=== PATIENT | female | born 1935 | race Two or more races ===

== ENCOUNTER 2017-08-18 16:03 | Inpatient (IN) | payer OTHER, MEDICARE ==
[~2017-08-18] VITALS: Ht 152.4 cm; Wt 66.2 kg
--- NOTE | 2017-08-18 16:05 | NUR ---
PT BROUGHT IN BY AKTE RA C/C OF ALOC. PT HOT TO TOUCH. LWK X 2 DAYS. ALL OTHER VSS. NEG OTHER DISTRESS NOTED. AWAITING MD BERGER.
[2017-08-18] MEDS ORDERED: ACETAMINOPHEN 650 MG/SUPP.RECT RC ONE ×2 (16:17→16:30)
[2017-08-18] MEDS ORDERED: PIPERACILLIN /TAZOBACTAM 3.375 G VIAL IV ONE (16:17)
--- NOTE | 2017-08-18 16:25 | NUR ---
PT BROUGHT TO CT
[2017-08-18] MEDS ORDERED: IV NS 0.9% 1,000 ML BAG IV ONE (16:30)
[2017-08-18] MEDS ORDERED: PIPERACILLIN /TAZOBACTAM 3.375 G in IV D5W 50 ML IV ONE (16:30)
--- NOTE | 2017-08-18 16:35 | NUR ---
PT RETURNED FROM CT
[2017-08-18 16:40] LABS: ALANINE AMINOTRANSFERASE 22 U/L (12-78); ALBUMIN 2.1 g/dL (3.4-5.0); ALKALINE PHOSPHATASE 125 U/L (46-116); ASPARTATE AMINOTRANSFERASE 15 U/L (15-37); BILIRUBIN,DIRECT 0.5 mg/dL (0.0-0.2); CALCIUM, SERUM 8.9 mg/dL (8.5-10.1); CARBON DIOXIDE 23 mmol/L (21-32); CHLORIDE 102 mmol/L (98-107); CREATININE 1.5 mg/dL (0.6-1.3); GLUCOSE 129 mg/dL (74-106); POTASSIUM 3.2 mmol/L (3.5-5.1); SODIUM SERUM 135 mmol/L (136-145); TOTAL PROTEIN, SERUM 6.4 g/dL (6.4-8.2); UREA NITROGEN, BLOOD 36 mg/dL (7-18)
[2017-08-18 16:42] LABS: TROPONIN I 0.218 ng/mL (0.00-0.056)
[2017-08-18 17:02] LABS: INR 8.27 (0.85-1.15)
[2017-08-18 17:10] LABS: APPEARANCE,URINE Clear (CLEAR); BILIRUBIN,URINE Negative (NEGATIVE); BLOOD, URINE Small Ery/uL (NEGATIVE); COLOR,URINE Yellow (YELLOW); KETONES,URINE Negative (NEGATIVE); LEUKOCYTE ESTERASE ,URINE Negative (NEGATIVE); NITRITE, URINE Negative (NEGATIVE); PH,URINE 5.5 (5.0-8.0); PROTEIN,URINE 30 mg/dl (NEGATIVE); UGLUCOSE Negative (NEGATIVE); UROBILINOGEN,URINE 0.2 EU/dL (0.2)
[2017-08-18] MEDS ORDERED: PRED2.5T PO (17:16)
[2017-08-18] MEDS ORDERED: ISOS20TA8 PO (17:16)
[2017-08-18] MEDS ORDERED: INSU100V7 SQ (17:16)
[2017-08-18] MEDS ORDERED: ASPI-1169 PO (17:16)
[2017-08-18] MEDS ORDERED: SERT50TA PO (17:16)
[2017-08-18] MEDS ORDERED: CARV6.252 PO (17:16)
[2017-08-18] MEDS ORDERED: ACET325T53 PO (17:16)
[2017-08-18] MEDS ORDERED: LOPE1LIQ56 PO (17:16)
[2017-08-18] MEDS ORDERED: HYDR-4077 PO (17:16)
[2017-08-18] MEDS ORDERED: BUME0.5T3 PO (17:16)
[2017-08-18] MEDS ORDERED: BLOO-668 IN (17:16)
[2017-08-18] MEDS ORDERED: WARF6TAB23 PO (17:16)
[2017-08-18] MEDS ORDERED: INSU100V11 SQ (17:16)
[2017-08-18] MEDS ORDERED: LOSA25TA13 PO (17:16)
[2017-08-18] MEDS ORDERED: ASPIRIN 81 MG TAB.CHEW PO ONE (17:30)
[2017-08-18 17:39] LABS: BASOPHILS % (AUTO) 0.1 % (0.0-2.0); EOSINOPHILS % (AUTO) 0.1 % (0.0-6.0); HEMATOCRIT 39 % (33-45); HEMOGLOBIN 12.9 g/dL (11.5-14.8); LYMPHOCYTES # (AUTO) 1.6 /CMM (0.8-4.8); LYMPHOCYTES % (AUTO) 4.4 % (20.0-44.0); MEAN CORPUSCULAR HEMOGLOBIN 27 PG (26.0-33.0); MEAN CORPUSCULAR HGB CONC 33 g/dl (31.0-36.0); MEAN CORPUSCULAR VOLUME 81 fL (82-100); MONOCYTES # (AUTO) 2.6 /CMM (0.1-1.30); MONOCYTES % (AUTO) 7.1 % (2.0-12.0); NEUTROPHILS # (AUTO) 32.5 /CMM (1.8-8.9); NEUTROPHILS % (AUTO) 88.3 % (43.0-81.0); PLATELET COUNT (AUTO) 338 /CMM (150-450); RDW COEFFICIENT OF VARIATION 16.7 (11.5-15.0)
[2017-08-18 17:43] LABS: WHITE BLOOD COUNT (AUTO) 36.8 K/uL (4.3-11.0)
--- NOTE | 2017-08-18 18:00 | NUR ---
JELANI PAGED, TIESHA FRANCISCO SPECIAL AGENT DIETITIAN
--- NOTE | 2017-08-18 18:41 | NUR ---
CHU 103 FOR SEPSIS, COLITIS, NSTEMI, TIESHA FRANCISCO ADMITTING
--- NOTE | 2017-08-18 19:30 | NUR ---
CHU/ADMISSION RN NOTES: RECEIVED PT. IN [facility] FROM [facility].R. W/ SON AND DAUGHTER IN [place] [phone]. W/ O2 @ 4LPM VIA N/C SAT. 94%. ALERT TO NAME ONLY. SPEAKS TURKISH ONLY. NO FACIAL GRIMACES OR MOANING NOTED. NO S/S OF RESPIRATORY DISTRESS NOTED. ON TELE MONITOR W/ SR W/ BBB. HAS F/C INPLACE DRAINING VIA GRAVITIY. K 3.2 GAVE 3 BAGS OF K PER ORDER. INCONTINENT OF B/B. NOTED TO HAVE 2 EPISODES OF DIARRHEA. SEND STOOL FOR C-DIFF. HAS A RIGHT HAND G 20 PATENT AND INTACT W/ NO S/S OF INFECTION/INFILTRATION NOTED. CALL LIGHT W/ REACH. WILL CONTINUE TO MONITOR.
[2017-08-18 20:00] VITALS: BP 118/59
[2017-08-18] MEDS ORDERED: ACETAMINOPHEN 325 MG TABLET PO PRN (20:00)
[2017-08-18] MEDS ORDERED: KETOROLAC TROMETHAMINE INJ 30 MG/ML VIAL IM PRN ×2 (20:00)
[2017-08-18] MEDS ORDERED: ONDANSETRON HCL/PF 4 MG/2 ML VIAL IVP PRN (20:00)
[2017-08-18 20:14] LABS: BAND % (MANUAL) 7 % (0.0-5.0); LYMPHOCYTES % (MANUAL) 2 % (16-48); NEUTROPHILS % (MANUAL) 86 (42-76)
[2017-08-18 20:23] LABS: BACTERIA,URINE 4+ /HPF (None Seen); SQUAMOUS EPITHELIAL CELL,UR Rare /HPF (None Seen)
[2017-08-18] MEDS: POTASSIUM CL. PREMIX PERIPHER. 50 ML IV SCH ×3 (20:25→22:39)
[2017-08-18] MEDS ORDERED: DEXTROSE 50%-WATER 50 ML DISP.SYRIN IV PRN (20:30)
[2017-08-18] MEDS: METRONIDAZOLE 500MG/ NS 100ML 100 ML IV SCH (21:00)
[2017-08-18 22:00] LABS: OCCULT BLOOD STOOL POSITIVE (NEGATIVE)
[2017-08-18 22:28] LABS: BASOPHILS # (AUTO) 0.1 /CMM (0.0-0.2); BASOPHILS % (AUTO) 0.2 % (0.0-2.0); EOSINOPHILS % (AUTO) 0.1 % (0.0-6.0); HEMATOCRIT 39 % (33-45); HEMOGLOBIN 12.7 g/dL (11.5-14.8); LYMPHOCYTES # (AUTO) 1.5 /CMM (0.8-4.8); LYMPHOCYTES % (AUTO) 4.2 % (20.0-44.0); MEAN CORPUSCULAR HEMOGLOBIN 26 PG (26.0-33.0); MEAN CORPUSCULAR HGB CONC 33 g/dl (31.0-36.0); MEAN CORPUSCULAR VOLUME 81 fL (82-100); MONOCYTES # (AUTO) 3.1 /CMM (0.1-1.30); MONOCYTES % (AUTO) 8.3 % (2.0-12.0); NEUTROPHILS % (AUTO) 87.2 % (43.0-81.0); PLATELET COUNT (AUTO) 294 /CMM (150-450); RDW COEFFICIENT OF VARIATION 16.4 (11.5-15.0); RED BLOOD CELL COUNT(AUTO) 4.79 MIL/uL (4.0-5.2)
[2017-08-18 22:39] LABS: CALCIUM, SERUM 8.2 mg/dL (8.5-10.1); CARBON DIOXIDE 19 mmol/L (21-32); CHLORIDE 105 mmol/L (98-107); CREATININE 1.6 mg/dL (0.6-1.3); GLUCOSE 146 mg/dL (74-106); POTASSIUM 3.7 mmol/L (3.5-5.1); SODIUM SERUM 138 mmol/L (136-145); UREA NITROGEN, BLOOD 34 mg/dL (7-18)
[2017-08-18 22:49] LABS: TROPONIN I 0.218 ng/mL (0.00-0.056)
[2017-08-18 22:50] LABS: WHITE BLOOD COUNT (AUTO) 36.7 K/uL (4.3-11.0)
[2017-08-18 23:03] LABS: BAND % (MANUAL) 13 % (0.0-5.0); LYMPHOCYTES % (MANUAL) 7 % (16-48); NEUTROPHILS % (MANUAL) 74 (42-76)
[2017-08-18] MEDS ORDERED: METRONIDAZOLE 500MG/ NS 100ML 100 ML IV ONE (23:03)
[2017-08-18 23:04] LABS: MONOCYTES % (MANUAL) 6 % (0-11.0)
[2017-08-18 23:06] VITALS: BP 118/59
[2017-08-19] VITALS (11 sets, daily range): BP systolic 82–116; BP diastolic 43–56
[2017-08-19] MEDS ORDERED: VANCOMYCIN IV ONE ×2
[2017-08-19] MEDS ORDERED: D5W IV ONE ×2
[2017-08-19] MEDS: BLOOD SUGAR DIAGNOSTIC 1 EACH STRIP IN SCH ×5 (00:31→23:26)
[2017-08-19] MEDS: INSULIN REGULAR, HUMAN 100 UNIT/ML 3 ML VIAL SQ PRN ×5 (00:34→23:39)
[2017-08-19] MEDS ORDERED: PIPERACILLIN /TAZOBACTAM 2.25 G VIAL IV ONE ×2 (00:41→06:26)
[2017-08-19] MEDS: PIPERACILLIN /TAZOBACTAM 2.25 G in IV D5W 50 ML IV SCH ×5 (00:57→23:51)
[2017-08-19] MEDS: ATORVASTATIN 40 MG TABLET PO SCH ×2 (01:00→21:43)
[2017-08-19] MEDS ORDERED: VANCOMYCIN 1 GM VIAL ONE (01:04)
[2017-08-19] MEDS ORDERED: VANCOMYCIN 500 MG VIAL ONE (01:04)
[2017-08-19] MEDS ORDERED: VANCOMYCIN 1.25 GM in IV NS 0.9% 500 ML IV ONE (02:00)
[2017-08-19] MEDS: METRONIDAZOLE 500MG/ NS 100ML 100 ML IV SCH ×3 (05:00→21:43)
[2017-08-19 06:39] LABS: MAGNESIUM 1.9 mg/dL (1.8-2.4); PHOSPHORUS 3.2 mg/dL (2.5-4.9)
--- NOTE | 2017-08-19 07:25 | NUR ---
CHU/RN NOTES: NO ACUTE CHANGES NOTED DURING THIS SHIFT. REPORT GIVEN TO AM NURSE FOR NYLA.
--- NOTE | 2017-08-19 07:56 | NUR ---
CHU RN NOTE PATIENT IN BED , ALL NEEDS ATTENDED ,ON 4L NC OF O2 , NO SOB NOTED AT THIS TIME , BED IN LOWEST AND LOCKED POSITION , CALL LIGHT WITHIN REACH, ON TELE MONITOR SR ,ON NPO STATUS AT THIS TIME RT HAND HL INTACT WITH SEGURA CATH TO GRAVITY WITH YELLOW COLOR URINE PATIENT SLEEPING BUT AROUSAL BY HER NAME WILL CONT TO MONITOR CLOSELY
[2017-08-19 08:01] LABS: INR > 10.00 (0.87-1.13)
[2017-08-19 08:26] LABS: THYROID STIMULATING HORMONE 0.514 uIU/mL (0.358-3.74)
[2017-08-19] MEDS: predniSONE 5 MG TABLET PO SCH (08:41)
[2017-08-19] MEDS: PANTOPRAZOLE 40 MG VIAL IV SCH (08:54)
[2017-08-19] MEDS ORDERED: Z GUARD REMEDY 2 OZ OINT TP SCH (09:00)
[2017-08-19] MEDS ORDERED: Medication Not On Formulary EA (Prednisone 2.5 MG) PO SCH (09:00)
--- NOTE | 2017-08-19 10:00 | NUR ---
CHU RN NOTE PATIENT REMOVE INCIDENTALLY HL , NEW ONE LANIE 24 WITH GOOD BLOOD RETURN ON RT FA INSERTED , ST AT BEDSIDE PASS ED WILL PLACED ON PUREE DIET
--- NOTE | 2017-08-19 10:43 | NUR ---
CHU RN NOTE 2D ECHO DONE ORDERED MADE BM KEEP CLEAN DRY , [facility] PATIENT HAS POSITIVE C DIF , ON ISOLATION PER HOSPITAL PROTOCOL
--- NOTE | 2017-08-19 11:30 | NUR ---
CHU RN NOTE SPOKE WITH TIESHA NOTIFIED THAT INR 10.00 ALSO AWARE THAT PATIENT ON TORADOL PRN NO ANTICOAGULANT HAVE AT THIS TIME OK TO D\C TORADOL ORDER CADDIED OUT Addendum: 08/19/17 at 1313 by BERNA GORDON RN PT AT BEDSIDE ABLE TO SIT AT EDGE OF BED WITH MOD ASSISTANCE, FAMILY AT BEDSIDE
[2017-08-19] MEDS ORDERED: FEE PK DOSING 1 MIN EA MC ONE (11:33)
--- NOTE | 2017-08-19 14:05 | NUR ---
CHU RN NOTE SPOKE WITH DR DAVIS NOTIFIED THAT BUN 34 AND CREATINE 1.6 ALSO SINCE MORNING ONLY 100 ML OF URINE , STATED THAT WILL CHECK PATIENT
[2017-08-19] MEDS: LACTOBACILLUS RHAMNOSUS GG 1 EACH CAP.SPRINK PO SCH (17:08)
[2017-08-19] MEDS: VANCOMYCIN HCL 125 MG/2.5 ML ORAL.SUSP PO SCH ×2 (17:34→23:26)
[2017-08-19] MEDS ORDERED: Medication Not On Formulary EA (Insulin Glargine,Hum.rec.anlog (Lantus) 20 UNIT) SQ SCH (18:00)
[2017-08-19] MEDS ORDERED: INSULIN GLARGINE, 100 UNIT/ML CARTRIDGE SQ SCH (18:00)
--- NOTE | 2017-08-19 18:55 | NUR ---
CHU RN NOTE SEEN BY DR AVILA CHECK WRITER SALESPERSON NOTIFIED THAT INR >10 NO NEW ORDER GIVEN AT THIS TIME, WILL CONT TO MONITOR CLOSELY
--- NOTE | 2017-08-19 20:00 | NUR ---
RN TEL NOTE PATIENT IN BED , ALL NEEDS ATTENDED ,ON 4L NC OF O2 , NO SOB NOTED AT THIS TIME , SEEN BY DR AVILA STATUS TEL , DAUGHTER BY BED SIDE UPDATE GIVEN REGARDING PT PLAN OF CARE. BED IN LOWEST AND LOCKED POSITION , CALL LIGHT WITHIN REACH, ON TELE MONITOR SR ,ON PUREE WITH PLAN TO UPGRADE TO CCHO DIET . RT HAND HL INTACT WITH SEGURA CATH TO GRAVITY WITH YELLOW COLOR URINE PATIENT SLEEPING BUT AROUSAL BY HER NAME WILL CONT TO MONITOR CLOSELY
[2017-08-19] MEDS: ACETAMINOPHEN 325 MG TABLET PO PRN (21:43)
[2017-08-19] MEDS ORDERED: VANCOMYCIN 1 GM in IV D5W 250 ML IV SCH (22:00)
[2017-08-20] VITALS: BP 113/45
[2017-08-20 04:00] VITALS: BP 108/44
[2017-08-20] MEDS: METRONIDAZOLE 500MG/ NS 100ML 100 ML IV SCH ×3 (04:22→22:20)
[2017-08-20] MEDS: BLOOD SUGAR DIAGNOSTIC 1 EACH STRIP IN SCH ×4 (05:37→22:59)
[2017-08-20] MEDS: PIPERACILLIN /TAZOBACTAM 2.25 G in IV D5W 50 ML IV SCH (05:37)
[2017-08-20] MEDS: VANCOMYCIN HCL 125 MG/2.5 ML ORAL.SUSP PO SCH ×4 (05:37→23:20)
[2017-08-20] MEDS: INSULIN REGULAR, HUMAN 100 UNIT/ML 3 ML VIAL SQ PRN ×3 (05:56→17:35)
[2017-08-20 06:36] LABS: BASOPHILS # (AUTO) 0.1 /CMM (0.0-0.2); BASOPHILS % (AUTO) 0.1 % (0.0-2.0); EOSINOPHILS % (AUTO) 0.2 % (0.0-6.0); HEMATOCRIT 39 % (33-45); HEMOGLOBIN 12.7 g/dL (11.5-14.8); LYMPHOCYTES # (AUTO) 1.7 /CMM (0.8-4.8); LYMPHOCYTES % (AUTO) 2.9 % (20.0-44.0); MEAN CORPUSCULAR HEMOGLOBIN 27 PG (26.0-33.0); MEAN CORPUSCULAR HGB CONC 33 g/dl (31.0-36.0); MEAN CORPUSCULAR VOLUME 81 fL (82-100); MONOCYTES # (AUTO) 3.3 /CMM (0.1-1.30); MONOCYTES % (AUTO) 5.6 % (2.0-12.0); NEUTROPHILS % (AUTO) 91.2 % (43.0-81.0); PLATELET COUNT (AUTO) 323 /CMM (150-450); RDW COEFFICIENT OF VARIATION 16.5 (11.5-15.0); RED BLOOD CELL COUNT(AUTO) 4.74 MIL/uL (4.0-5.2)
--- NOTE | 2017-08-20 06:47 | NUR ---
RN TEL CLOSING NOTE PATIENT IN BED , ALL NEEDS ATTENDED ,ON 4L NC OF O2 , NO SOB NOTED AT THIS TIME , BP TRENDING IN LOW 100'S. BED IN LOWEST AND LOCKED POSITION , CALL LIGHT WITHIN REACH, ON TELE MONITOR SR ,ON PUREE WITH PLAN TO UPGRADE TO CCHO DIET . RT HAND HL INTACT WITH SEGURA CATH TO GRAVITY WITH YELLOW COLOR URINE PATIENT SLEEPING BUT AROUSAL BY HER NAME WILL CONT TO MONITOR CLOSELY
[2017-08-20 06:54] LABS: CALCIUM, SERUM 7.9 mg/dL (8.5-10.1); CARBON DIOXIDE 18 mmol/L (21-32); CHLORIDE 104 mmol/L (98-107); GLUCOSE 200 mg/dL (74-106); MAGNESIUM 2.1 mg/dL (1.8-2.4); PHOSPHORUS 3.2 mg/dL (2.5-4.9); POTASSIUM 3.5 mmol/L (3.5-5.1); SODIUM SERUM 134 mmol/L (136-145); UREA NITROGEN, BLOOD 50 mg/dL (7-18)
--- NOTE | 2017-08-20 07:00 | NUR ---
MANAGER TRADE OPENING NOTE GOT REPORT FROM PM NURSE.INFORMED THAT PATIENT WBC TRENDING HIGH.WITH CRITICAL RESULT.WILL FOLLOW UP WITH PCP.PATIENT IN BED AXOX1 ICELANDIC SPEAKING.ON O2 4L NC SATURATING 94%. RT HAND IV #20 INTACT, SEGURA CATH DRAINING TEA COLOR URINE .ON ISOLATION FOR C-DIFF.ALLERGIC TO MORPHINE .FULL CODE. ON TELE MONITOR SR 95 ,ON PUREE DIET . BED IN LOWEST AND LOCKED POSITION , CALL LIGHT WITHIN REACH.WILL CONTINUE TO MONITOR.
[2017-08-20 07:10] LABS: WHITE BLOOD COUNT (AUTO) 58.1 K/uL (4.3-11.0)
[2017-08-20 08:00] VITALS: BP 94/46
[2017-08-20 08:59] LABS: LYMPHOCYTES % (MANUAL) 5 % (16-48); MONOCYTES % (MANUAL) 8 % (0-11.0); NEUTROPHILS % (MANUAL) 87 (42-76)
--- NOTE | 2017-08-20 09:00 | NUR ---
RN NOTES SEEN BY AWARE ABOUT CRITICAL WC AND ALL ABNORMAL LABS.ORDERED X RAY AND IVF .SEEN BY WOUND CARE NURSE.GOT NEW ORDERS.
[2017-08-20] MEDS: LACTOBACILLUS RHAMNOSUS GG 1 EACH CAP.SPRINK PO SCH ×2 (09:20→17:27)
[2017-08-20] MEDS: IV NS 0.9% 1,000 ML IV SCH ×2 (09:21→20:52)
[2017-08-20] MEDS: PANTOPRAZOLE 40 MG VIAL IV SCH (09:21)
[2017-08-20] MEDS: predniSONE 5 MG TABLET PO SCH (09:21)
--- NOTE | 2017-08-20 09:33 | NUR ---
WOUND CARE CONSULT: PT PRESENTS WITH INCONTINENCE OF LOOSE STOOL, LEFT THIGH DRY ABRASION, SACRAL SCARRING AND REDNESS TO BILATERAL BUTTOCKS, BLANCHABLE. ALL SKIN PROTECTION RECOMMENDATIONS DISCUSSED WITH NURSING STAFF. ALESHIA ISOFLEX LOW AIRLOSS BED TO BE PLACED. WILL SEE PRN. JAY IN AGREEMENT WITH PLAN OF CARE. Addendum: 08/20/17 at 0934 by JACKIE ANDRES WNDNU Amended: Links added.
[2017-08-20 09:54] LABS: TROPONIN I 0.214 ng/mL (0.00-0.056)
[2017-08-20 10:37] LABS: INR > 10.00 (0.87-1.13)
--- NOTE | 2017-08-20 10:45 | NUR ---
CUFF SETTER LOCKSTITCH NOTES GOT CALL FROM LAB FOR CRITICAL PT INR RESULT.HOUSEHOLD APPLIANCE REPAIRER TIESHA MADE AWARE.NOTIFIED ABOUT ALL ABNORMAL LABS AND SMALL BLOOD CLOTS NOTED IN BM.SHE SAID SHE WILL FOLLOW UP WITH FOR VIT K.
[2017-08-20] MEDS ORDERED: DEXTROSE 50%-WATER 50 ML DISP.SYRIN IV PRN (11:00)
[2017-08-20 12:00] VITALS: BP 90/43
[2017-08-20] MEDS ORDERED: PHYTONADIONE INJ 10 MG/1 ML AMPUL SQ ONE (12:00)
[2017-08-20 12:40] LABS: ABG BASE EXCESS -8.4 mmol/L; ABG OXYGEN SATURATION 97.2 % (92.0-98.5); ABG PCO2 29.8 mmHg (35.0-45.0); ABG PH 7.346 (7.350-7.450); ABG PO2 101.4 mmHg (75.0-100.0); AaDO2 120.7 mmHg; COHb 0.1 % (0.5-1.5); MetHb 0.6 % (0.0-1.5); O2Hb 96.5 % (94.0-97.0); SITE, ABG Right Brachial; VENT MODE, BG NASAL CANNULA
[2017-08-20] MEDS ORDERED: PIPERACILLIN /TAZOBACTAM 2.25 G in IV D5W 50 ML IV SCH (13:00)
--- NOTE | 2017-08-20 15:00 | NUR ---
PROJECT PORTFOLIO ANALYST NOTES SEEN BY SHALONDA MOTLEY WITH NEW ORDERS.ALL ABNORMAL LABS REPORTED.WILL CONTINUE TO MONITOR.
[2017-08-20 15:37] LABS: INR > 10.00 (0.87-1.13)
[2017-08-20 16:00] VITALS: BP 102/57
--- NOTE | 2017-08-20 16:00 | NUR ---
RN NOTES PT REFUSED PT EVAL
[2017-08-20] MEDS: INSULIN GLARGINE, 100 UNIT/ML CARTRIDGE SQ SCH (17:35)
--- NOTE | 2017-08-20 19:36 | NUR ---
MENDER KNIT GOODS SHIFT END NOTE PATIENT IN BED AXOX1 TOGOLESE SPEAKING.ON O2 4L NC SATURATING 96%. RT HAND IV #20 INTACT WITH NS AT 100CC/HR, SEGURA CATH DRAINING TEA COLOR URINE .ON ISOLATION FOR C-DIFF.ALLERGIC TO MORPHINE .FULL CODE. ON TELE MONITOR SR 96 ,ON PUREE DIET .FAMILY WAS AT BEDSIDE EXPLAINED CONDITION OF THE PATIENT TO THE RESPONSIBLE CONSTITUTION PARTY.ANSWERED ALL THE ANSWERED. BED IN LOWEST AND LOCKED POSITION , CALL LIGHT WITHIN REACH.GOT NEW ORDER FROM SHALONDA MOTLEY FOR STAT CT SCAN OF ABDOMEN WITH PELVIS.PLACED ORDER.WILL ENDORSE TO PM NURSE FOR NYLA.
[2017-08-20 20:00] VITALS: BP 106/46
[2017-08-20] MEDS ORDERED: INSULIN GLARGINE, 100 UNIT/ML CARTRIDGE SQ SCH (22:00)
[2017-08-20 23:58] LABS: INR > 10.00 (0.87-1.13)
[2017-08-21] VITALS (9 sets, daily range): BP systolic 105–139; BP diastolic 51–72
[2017-08-21] MEDS ORDERED: PHYTONADIONE INJ 10 MG/1 ML AMPUL SQ ONE (00:30)
[2017-08-21] MEDS: INSULIN REGULAR, HUMAN 100 UNIT/ML 3 ML VIAL SQ PRN ×6 (01:15→21:26)
[2017-08-21] MEDS: BLOOD SUGAR DIAGNOSTIC 1 EACH STRIP IN SCH ×6 (01:22→21:26)
--- NOTE | 2017-08-21 01:56 | NUR ---
RN NOTES RECEIVED PATIENT COMFORTABLY RESTING IN BED WITH NO DISTRESS NOTED. BREATHING EVEN AND UNLABORED. NO COMPLAINT OF PAIN OR DISCOMFORT. ALERT AND ORIENTED. MAURITANIAN SPEAKING. ABLE TO VERBALIZE NEEDS. RECEIVED REPORT FROM LAB WITH CRITICAL LAB VALUE FOR PT>20. INJECT VIT K ORDERED. CONTINUOUS MONITORING DONE. VITAL SIGNS WNL. KEPT CLEAN AND DRY.
[2017-08-21] MEDS: VANCOMYCIN HCL 125 MG/2.5 ML ORAL.SUSP PO SCH ×4 (05:06→23:26)
[2017-08-21] MEDS: METRONIDAZOLE 500MG/ NS 100ML 100 ML IV SCH ×3 (05:07→21:17)
[2017-08-21] MEDS: IV NS 0.9% 1,000 ML IV SCH ×3 (06:18→20:00)
[2017-08-21 06:40] LABS: EOSINOPHILS % (AUTO) 0.5 % (0.0-6.0); HEMATOCRIT 40 % (33-45); LYMPHOCYTES % (AUTO) 3.5 % (20.0-44.0); MEAN CORPUSCULAR HEMOGLOBIN 26 PG (26.0-33.0); MEAN CORPUSCULAR HGB CONC 33 g/dl (31.0-36.0); MEAN CORPUSCULAR VOLUME 81 fL (82-100); MONOCYTES # (AUTO) 2.6 /CMM (0.1-1.30); MONOCYTES % (AUTO) 4.5 % (2.0-12.0); NEUTROPHILS # (AUTO) 52.9 /CMM (1.8-8.9); NEUTROPHILS % (AUTO) 91.5 % (43.0-81.0); PLATELET COUNT (AUTO) 365 /CMM (150-450); RDW COEFFICIENT OF VARIATION 16.8 (11.5-15.0); RED BLOOD CELL COUNT(AUTO) 4.91 MIL/uL (4.0-5.2)
[2017-08-21 06:56] LABS: WHITE BLOOD COUNT (AUTO) 57.9 K/uL (4.3-11.0)
[2017-08-21 06:59] LABS: CALCIUM, SERUM 7.3 mg/dL (8.5-10.1); CARBON DIOXIDE 16 mmol/L (21-32); CHLORIDE 103 mmol/L (98-107); CREATININE 3.9 mg/dL (0.6-1.3); GLUCOSE 189 mg/dL (74-106); PHOSPHORUS 3.7 mg/dL (2.5-4.9); POTASSIUM 3.4 mmol/L (3.5-5.1); SODIUM SERUM 133 mmol/L (136-145); UREA NITROGEN, BLOOD 57 mg/dL (7-18)
[2017-08-21 07:02] LABS: INR > 10.00 (0.87-1.13)
[2017-08-21 07:04] LABS: PARTIAL THROMBOPLASTIN TIME 77 SEC (23-34)
--- NOTE | 2017-08-21 07:30 | NUR ---
SYRUP SHED SUPERVISOR OPENING NOTE GOT REPORT FROM PM NURSE.INFORMED THAT PATIENT WBC STILL HIGH.WITH CRITICAL RESULT.LEFT MESSAGE TO SYSTEMS ADMIN DR BY PM NURSE.GOT CALL FROM MADE AWARE ABOUT CRITICAL RESULT .ASKED TO FOLLOW UP WITH TODAY.NOT MUCH CHANGES NOTED FROM THE LAB YESTERDAY.WILL FOLLOW UP WITH PCP.PATIENT IN BED AXOX1 BRUNEIAN SPEAKING.ON O2 4L NC SATURATING 92%. RT HAND IV #20 INTACT WITH NS 100CC/HR, SEGURA CATH DRAINING TEA COLOR URINE .ON ISOLATION FOR C-DIFF.ALLERGIC TO MORPHINE .FULL CODE. ON TELE MONITOR SR 91 ,ON PUREE DIET . BED IN LOWEST AND LOCKED POSITION , CALL LIGHT WITHIN REACH.WILL CONTINUE TO MONITOR.
[2017-08-21 09:16] LABS: BAND % (MANUAL) 3 % (0.0-5.0); EOSINOPHILS % (MANUAL) 1 % (0-4); LYMPHOCYTES % (MANUAL) 4 % (16-48); MONOCYTES % (MANUAL) 6 % (0-11.0); NEUTROPHILS % (MANUAL) 86 (42-76)
[2017-08-21] MEDS: predniSONE 5 MG TABLET PO SCH (09:40)
[2017-08-21] MEDS: ACETAMINOPHEN 325 MG TABLET PO PRN (09:45)
[2017-08-21] MEDS: LACTOBACILLUS RHAMNOSUS GG 1 EACH CAP.SPRINK PO SCH ×2 (09:45→17:03)
[2017-08-21] MEDS: PANTOPRAZOLE 40 MG VIAL IV SCH (09:46)
--- NOTE | 2017-08-21 10:00 | NUR ---
BIOLOGICS SPECIALIST NOTES SEEN BY MADE AWARE ABOUT THE URINE OUTPUT ,ALL ABNORMAL LABS AND ASK FOR C X GAYLE.GOT ORDER FOR C XRAY FOR TOMORROW.
[2017-08-21] MEDS ORDERED: DOSE PER PHARMACY (MD SPECIFY MEDICATION) 1 EA XX PRN (12:30)
[2017-08-21] MEDS ORDERED: POTASSIUM CHLORIDE 10 MEQ TABLET.SA PO ONE (14:00)
[2017-08-21] MEDS ORDERED: SODIUM BICARBONATE 650 MG TABLET PO PRN (14:00)
[2017-08-21] MEDS ORDERED: POTASSIUM CHLORIDE 20 MEQ POWDER PACKET PO ONE (14:30)
--- NOTE | 2017-08-21 15:10 | NUR ---
SENIOR VISUAL DESIGNER NOTES SEEN BY MADE AWARE ABOUT THE ABNORMAL CBC AND CONDITION OF THE PATIENT.GOT NEW ORDERERS.SEEN BY DR.SORA PAULA UPDATED ABOUT THE PATIENT CONDITION,NO RECOMMENDATION FOR DIALYSIS AT THIS POINT.WILL FOLLOW UP.SEEN BY TO CONTINUE CURRENT ANTIBIOTIC AND LOOKING FORWARD FOR POSSIBLE STOOL TRANSPLANT. SEEN BY DR. EMILY DAVIS WAITING FOR MEDICAL OPTIMIZATION. TALKED TO THE SON EXPLAINED CONDITION OF THE PATIENT AND ANSWERED ALL THE QUESTIONS.
[2017-08-21] MEDS ORDERED: FUROSEMIDE 20 MG/2 ML VIAL IV ONE (16:30)
[2017-08-21] MEDS: FIDAXOMICIN 200 MG TABLET PO SCH (17:03)
[2017-08-21] MEDS: INSULIN GLARGINE, 100 UNIT/ML CARTRIDGE SQ SCH (17:28)
[2017-08-21] MEDS: VANCOMYCIN FOR RECTAL ENEMA 500 MG RC SCH ×2 (18:26→23:26)
--- NOTE | 2017-08-21 19:00 | NUR ---
RN NOTES LEFT MESSAGE TO [employer] FOR AFSANEH MATTRESS.SPOKE TO THEM YESTERDAY.ENDORSED TO PM NURSE FOR FOLLOW UP.
--- NOTE | 2017-08-21 19:30 | NUR ---
SHEETMETAL PATTERNMAKER SHIFT END NOTE .PATIENT IN BED AXOX1 FRISIAN SPEAKING.ON O2 4L NC SATURATING 94%. RT HAND IV #20 INTACT WITH NS 50CC/HR, SEGURA CATH DRAINING TEA COLOR URINE .ON ISOLATION FOR C-DIFF.ALLERGIC TO MORPHINE .FULL CODE. ON TELE MONITOR SR 92 .SEEN BY ORDERED 2 FFP TO GIVE LASIX IN BETWEEN 2 BAGS.AND TO GIVE CRYOPRECIPITATE IF FIBRINOGEN LESS THAN 150.PLACED AN ORDER FOR CRYOPRECIPITATE.VERIFIED WITH BLOOD BANK 2 UNITS ORDERED.ENDORSED TO PM CHARGE NURSE AND PM NURSE.SHOWED SPECIAL INSTRUCTIONS FROM THE DOCTOR.ENDORSED TO PM NURSE FOR NYLA.FAMILY IS AT BEDSIDE.
[2017-08-22] VITALS (15 sets, daily range): BP systolic 117–146; BP diastolic 52–71
[2017-08-22] MEDS: BLOOD SUGAR DIAGNOSTIC 1 EACH STRIP IN SCH ×6 (01:00→20:52)
[2017-08-22] MEDS: FUROSEMIDE 20 MG/2 ML VIAL IV PRN ×2 (01:32→09:53)
[2017-08-22] MEDS: INSULIN REGULAR, HUMAN 100 UNIT/ML 3 ML VIAL SQ PRN ×5 (02:02→20:49)
--- NOTE | 2017-08-22 02:28 | NUR ---
RN NOTES RECEIVED PATIENT AWAKE IN BED WITH FAMILY AT BEDSIDE. NO DISTRESS NOTED. BREATHING EVEN AND UNLABORED. NO PHYSICAL MANIFESTATION OF PAIN OR DISCOMFORT. ALERT AND RESPONSIVE, WOLOF SPEAKING. ON 34LPM VIA NASAL CANNULA TOLERATING WELL. VITAL SIGNS WNL. AT 2215 INFUSED 1ST BAG OF PLASMA WITH NO SIDE EFFECT NOTED. NO SIGN OR SYMPTOM OF DISCOMFORT OR PAIN. ADMINISTERED 20MG WILL CONTNUE TO MONITOR.
[2017-08-22] MEDS: METRONIDAZOLE 500MG/ NS 100ML 100 ML IV SCH ×2 (06:28→12:42)
[2017-08-22] MEDS: VANCOMYCIN HCL 125 MG/2.5 ML ORAL.SUSP PO SCH ×3 (06:31→17:51)
[2017-08-22] MEDS: VANCOMYCIN FOR RECTAL ENEMA 500 MG RC SCH ×3 (06:32→17:51)
--- NOTE | 2017-08-22 07:15 | NUR ---
TREATING ENGINEER HELPER INITIAL NOTES PT RESTING IN BED, NO ACUTE DISTRESS OR PAIN NOTED, ALL SAFETY MEASURES INITIATED, IV SITE INTACT AND PATENT, A&O X112 FRISIAN SPEAKING, ON TELE MON SR ST 99-100, ON 4L NC SAT ABOVE 97%, WILL CONTINUE TO MONITOR.
[2017-08-22 07:24] LABS: CALCIUM, SERUM 7.5 mg/dL (8.5-10.1); CARBON DIOXIDE 16 mmol/L (21-32); CHLORIDE 105 mmol/L (98-107); GLUCOSE 112 mg/dL (74-106); POTASSIUM 3.6 mmol/L (3.5-5.1); SODIUM SERUM 136 mmol/L (136-145); UREA NITROGEN, BLOOD 61 mg/dL (7-18)
[2017-08-22 08:07] LABS: D-DIMER 1.26 mg/L(FEU (0.17-0.50); INR 1.66 (0.87-1.13)
[2017-08-22] MEDS: PANTOPRAZOLE 40 MG VIAL IV SCH (09:52)
[2017-08-22] MEDS: FIDAXOMICIN 200 MG TABLET PO SCH ×2 (09:53→17:51)
[2017-08-22] MEDS: LACTOBACILLUS RHAMNOSUS GG 1 EACH CAP.SPRINK PO SCH ×2 (09:53→17:52)
[2017-08-22] MEDS: predniSONE 5 MG TABLET PO SCH (09:53)
[2017-08-22 09:56] LABS: EOSINOPHILS % (AUTO) 0.5 % (0.0-6.0); HEMATOCRIT 41 % (33-45); HEMOGLOBIN 13.4 g/dL (11.5-14.8); LYMPHOCYTES # (AUTO) 2.1 /CMM (0.8-4.8); LYMPHOCYTES % (AUTO) 5.2 % (20.0-44.0); MEAN CORPUSCULAR HEMOGLOBIN 26 PG (26.0-33.0); MEAN CORPUSCULAR HGB CONC 33 g/dl (31.0-36.0); MEAN CORPUSCULAR VOLUME 80 fL (82-100); MONOCYTES # (AUTO) 2.2 /CMM (0.1-1.30); MONOCYTES % (AUTO) 5.4 % (2.0-12.0); NEUTROPHILS # (AUTO) 36.8 /CMM (1.8-8.9); NEUTROPHILS % (AUTO) 88.9 % (43.0-81.0); PLATELET COUNT (AUTO) 419 /CMM (150-450); RDW COEFFICIENT OF VARIATION 16.8 (11.5-15.0); RED BLOOD CELL COUNT(AUTO) 5.11 MIL/uL (4.0-5.2)
[2017-08-22 10:11] LABS: WHITE BLOOD COUNT (AUTO) 41.3 K/uL (4.3-11.0)
[2017-08-22 10:25] LABS: BAND % (MANUAL) 5 % (0.0-5.0); LYMPHOCYTES % (MANUAL) 7 % (16-48); MONOCYTES % (MANUAL) 9 % (0-11.0); MYELOCYTES % 1 % (0-0); NEUTROPHILS % (MANUAL) 78 (42-76)
[2017-08-22] MEDS ORDERED: FUROSEMIDE 20 MG/2 ML VIAL IV ONE (14:00)
[2017-08-22] MEDS ORDERED: MEROPENEM 1 G in IV NS 0.9% 100 ML IV SCH (14:30)
[2017-08-22] MEDS ORDERED: MEROPENEM 500 MG in IV NS 0.9% 50 ML IV SCH (17:00)
[2017-08-22] MEDS: INSULIN GLARGINE, 100 UNIT/ML CARTRIDGE SQ SCH (17:59)
[2017-08-22] MEDS ORDERED: METRONIDAZOLE 500MG/ NS 100ML 500 MG in PREMIX 1 EA IV SCH (18:00)
--- NOTE | 2017-08-22 19:40 | NUR ---
REPERTOIRE MANAGER INITIAL NOTES PATIENT IN BED, BREATHING EVEN AND UNLABORED, NO S/S OF SOB/ACUTE DISTRESS NOTED AT A THIS TIME, OPTIMAL O2 SATURATION, LEVEL, FAMILY AT BEDSIDE, IV SITE INTACT AND PATENT, SR IN AIRCRAFT WORKER, BED LOCKED AND IN LOWEST POSITION, CALL LIGHT W/I REACH, WILL CONTINUE TO MONITOR.
--- NOTE | 2017-08-22 19:54 | NUR ---
PYROMETER TEMPERATURE REGULATOR ENDING NOTES PT RESTING IN BED, BED BATH PROVIDED X2 CHANGED DIAPER WITH TWO LARGE BOWEL MOVEMENTS, NEW IV INSERTE RT HAND 22 G INTACT AND PATENT NO S/S OF INFILTRATION NOTED, ALL DUE MEDS GIVEN, BG CHECKS AND INSULIN GIVEN MD ORDERED, FAMILY AT BEDSIDE AND WOULD LIKE PT TO BE TRANSFERRED TO [facility], SEGURA CATH DRAINING URINE VIA GRAVITY, WILL CONTINUE CARE AND MONITOR PT.
--- NOTE | 2017-08-22 19:57 | NUR ---
PULLBOAT ENGINEER NOTES PER PTS FAMILY REQUEST WOULD LIKE TO LET MD AWARE THAT THEY WANT TO TRANSFER PT TO [facility] SINCE NEPHYANDEL JAY FOLLOWS PT THERE, WILL F/U WITH .
[2017-08-22] MEDS: ACETAMINOPHEN 325 MG TABLET PO PRN (20:40)
--- NOTE | 2017-08-22 20:50 | NUR ---
DRY MIXER NOTES, FAMILY REFUSED INSULIN FOR PATIENT AT THIS TIME, PER FAMILY PATIENT DIDN'T EAT DINNER.
[2017-08-22] MEDS: METRONIDAZOLE 500MG/ NS 100ML 500 MG in PREMIX 1 EA IV SCH (20:58)
[2017-08-23] VITALS: BP 139/71
[2017-08-23] MEDS: VANCOMYCIN HCL 125 MG/2.5 ML ORAL.SUSP PO SCH ×4 (00:15→17:24)
[2017-08-23] MEDS: VANCOMYCIN FOR RECTAL ENEMA 500 MG RC SCH ×4 (00:56→17:00)
[2017-08-23] MEDS: BLOOD SUGAR DIAGNOSTIC 1 EACH STRIP IN SCH ×6 (01:13→21:22)
[2017-08-23] MEDS: INSULIN REGULAR, HUMAN 100 UNIT/ML 3 ML VIAL SQ PRN ×5 (01:13→21:24)
[2017-08-23] MEDS: ACETAMINOPHEN 325 MG TABLET PO PRN ×2 (03:02→18:55)
[2017-08-23 04:00] VITALS: BP 131/71
[2017-08-23] MEDS: METRONIDAZOLE 500MG/ NS 100ML 500 MG in PREMIX 1 EA IV SCH ×3 (04:44→21:25)
[2017-08-23 06:25] LABS: EOSINOPHILS % (AUTO) 1.1 % (0.0-6.0); HEMATOCRIT 44 % (33-45); HEMOGLOBIN 14.4 g/dL (11.5-14.8); LYMPHOCYTES # (AUTO) 2.2 /CMM (0.8-4.8); LYMPHOCYTES % (AUTO) 8.4 % (20.0-44.0); MEAN CORPUSCULAR HEMOGLOBIN 27 PG (26.0-33.0); MEAN CORPUSCULAR HGB CONC 33 g/dl (31.0-36.0); MEAN CORPUSCULAR VOLUME 81 fL (82-100); MONOCYTES # (AUTO) 2.2 /CMM (0.1-1.30); MONOCYTES % (AUTO) 8.4 % (2.0-12.0); NEUTROPHILS # (AUTO) 21.3 /CMM (1.8-8.9); NEUTROPHILS % (AUTO) 82.1 % (43.0-81.0); PLATELET COUNT (AUTO) 396 /CMM (150-450); RED BLOOD CELL COUNT(AUTO) 5.44 MIL/uL (4.0-5.2)
[2017-08-23 06:40] LABS: ALANINE AMINOTRANSFERASE 33 U/L (12-78); ALBUMIN 1.7 g/dL (3.4-5.0); ALKALINE PHOSPHATASE 177 U/L (46-116); ASPARTATE AMINOTRANSFERASE 41 U/L (15-37); BILIRUBIN,TOTAL 0.8 mg/dL (0.2-1.0); CALCIUM, SERUM 7.3 mg/dL (8.5-10.1); CARBON DIOXIDE 18 mmol/L (21-32); CHLORIDE 105 mmol/L (98-107); CREATININE 3.4 mg/dL (0.6-1.3); GLUCOSE 113 mg/dL (74-106); LIPASE 328 U/L (73-393); MAGNESIUM 1.9 mg/dL (1.8-2.4); PHOSPHORUS 4.2 mg/dL (2.5-4.9); POTASSIUM 3.2 mmol/L (3.5-5.1); SODIUM SERUM 136 mmol/L (136-145); TOTAL PROTEIN, SERUM 5.9 g/dL (6.4-8.2); UREA NITROGEN, BLOOD 61 mg/dL (7-18)
--- NOTE | 2017-08-23 06:40 | NUR ---
AUTO BENCH MECHANIC ENDING NOTES PATIENT SLEEPING IN BED AT THIS TIME, BUT EASILY TO AROUSE, BREATHING EVEN AND UNLABORED, NO S/S OF PAIN OR ANY DISCOMFORT AT THIS TIME, NO SOB/ACUTE DISTRESS NOTED, IV RT HAND 22 G INTACT AND PATENT NO S/S OF INFILTRATION NOTED, F/C IN PLACED DRAINING YELLOW URINE BY GRAVITY, PATENTCY INTACT, BED LOCKED AND IN LOWEST POSITION, CALL LIGHT W/I REACH, NO SIGNIFICANT CHANGE OF CONDITION THROUGHOUT THE NIGHT, WILL ENDORSE CONTINUITY O F CARE TO ONCOMING NURSE.
[2017-08-23 06:43] LABS: INR 1.56 (0.87-1.13)
[2017-08-23 06:44] LABS: D-DIMER 2.05 mg/L(FEU (0.17-0.50)
[2017-08-23 07:20] LABS: BAND % (MANUAL) 3 % (0.0-5.0); EOSINOPHILS % (MANUAL) 1 % (0-4); LYMPHOCYTES % (MANUAL) 11 % (16-48); MONOCYTES % (MANUAL) 14 % (0-11.0); NEUTROPHILS % (MANUAL) 71 (42-76)
--- NOTE | 2017-08-23 07:44 | NUR ---
MECHANIC INSULATOR OPENING NOTES RECEIVED PATIENT IN STABLE CONDITION. IN NO APPARENT DISTRESS. BEDSIDE RAILS ARE UPX2. BED IS LOCKED AND LOWERED. CALL LIGHT IS WITHIN REACH. IV LINE IS INTACT AND PATENT. WILL CONTINUE TO MONITOR.
[2017-08-23 08:00] VITALS: BP 132/73
[2017-08-23] MEDS: IV NS 0.9% 1,000 ML IV SCH (08:27)
[2017-08-23] MEDS: PANTOPRAZOLE 40 MG VIAL IV SCH (08:33)
[2017-08-23] MEDS: predniSONE 5 MG TABLET PO SCH (08:39)
[2017-08-23] MEDS: LACTOBACILLUS RHAMNOSUS GG 1 EACH CAP.SPRINK PO SCH ×2 (08:39→16:00)
[2017-08-23] MEDS: FIDAXOMICIN 200 MG TABLET PO SCH ×2 (08:39→16:00)
[2017-08-23 12:00] VITALS: BP 127/61
[2017-08-23 16:00] VITALS: BP 128/72
[2017-08-23] MEDS: INSULIN GLARGINE, 100 UNIT/ML CARTRIDGE SQ SCH (17:30)
--- NOTE | 2017-08-23 18:19 | NUR ---
FARM MANAGEMENT AGENT CLOSING NOTES PATIENT RESTING IN STABLE CONDITION. IN NO APPARENT DISTRESS. BEDSIDE RAILS ARE UPX2. BED IS LOCKED AND LOWERED. CALL LIGHT IS WITHIN REACH. IV LINE IS INTACT AND PATENT. ALL NEEDS WERE MET. PATIENT HAD 3 EPISODES OF BOWEL MOVEMENT DURING MY SHIFT SEMI FORMED. PATIENT CONTINUES ON ANTIBIOTICS. WILL ENDORSE CARE TO IMPREGNATOR ELECTROLYTIC CAPACITORS NURSE FOR NYLA.
--- NOTE | 2017-08-23 19:20 | NUR ---
COOK NIGHT INITIAL NOTES PATIENT AWAKE IN BED AT THIS TIME, BREATHING EVEN AND UNLABORED, NO S/S OF PAIN OR ANY DISCOMFORT AT THIS TIME, NO SOB/ACUTE DISTRESS NOTED, AT BEDSIDE AT THIS TIME, IV RT HAND 22 G INTACT AND PATENT NO S/S OF INFILTRATION NOTED, IVF FLUIDS RUNNING WELL AND PATIENT TOLERATED WELL, F/C IN PLACED DRAINING YELLOW URINE BY GRAVITY, PATENTCY INTACT, BED LOCKED AND IN LOWEST POSITION, DRY AND CLEAN AND WELL REPOSITIONED AT THIS TIME, CALL LIGHT W/I REACH, WILL CONTINUE TO MONITOR CLOSELY.
[2017-08-23 20:00] VITALS: BP 135/69
--- NOTE | 2017-08-23 20:10 | NUR ---
ARABIC TEACHER NOTES, PLACED A CALL FOR AIR HOLE DRILLER DR BANUELOS, PATIENT C/O ABDOMINAL PAIN, REGARDING PATIENT C/O ABDOMINAL PAIN, PATIENT HAD ALREADY TYLENOL AND STILL C/O PAIN, AWAITING DR ARRINGTON.
--- NOTE | 2017-08-23 20:34 | NUR ---
PRESSURE SUPERVISOR NOTES, [facility] AND RECEIVED A N.O FOR TRAMADOL 50MG Q8HRS PRN FOR PAIN, ORDER NOTED AND CARRIED OUT.
--- NOTE | 2017-08-23 20:55 | NUR ---
REGULATORY AUDITOR NOTES, UNABLE TO PLACE ORDER FOR TRAMADOL RELATED TO PATIENT ALLERGIC TO MORPHINE PER PHARMACIST TO CONTACT FAMILY AND ASK ABOUT THE SEVERITY OF REACTION FROM MORPHINE, WHEN TALK TO DAUGHTER, SHE STATED THAT HER MOM BECOMES AGGRESSIVE AND HALLUCINATES WITH ALL THESE STRONG MEDICATIONS AND SHE DOESN'T WANT ANY OF THEM FOR MOM, SHE STATED THAT ONLY WANTS TYLENOL TO BE ADMINISTERED, AND IN CASE MOM CONTINUE C/O PAIN WE CAN ASK THE DR TO INCREASE TYLENOL TO 1000MG, AT THIS TIME PATIENT SEEMS COMFORTABLE,WILL CONTINUE TO MONITOR CLOSELY.
[2017-08-24] VITALS: BP 117/63
[2017-08-24] MEDS: VANCOMYCIN HCL 125 MG/2.5 ML ORAL.SUSP PO SCH ×5 (00:24→23:12)
[2017-08-24] MEDS: VANCOMYCIN FOR RECTAL ENEMA 500 MG RC SCH ×5 (00:24→23:11)
[2017-08-24] MEDS: BLOOD SUGAR DIAGNOSTIC 1 EACH STRIP IN SCH ×6 (01:00→20:29)
[2017-08-24] MEDS: INSULIN REGULAR, HUMAN 100 UNIT/ML 3 ML VIAL SQ PRN ×4 (02:51→20:30)
[2017-08-24 04:00] VITALS: BP 132/68
[2017-08-24] MEDS: METRONIDAZOLE 500MG/ NS 100ML 500 MG in PREMIX 1 EA IV SCH ×3 (05:12→20:31)
[2017-08-24] MEDS: ACETAMINOPHEN 325 MG TABLET PO PRN ×2 (05:15→08:59)
[2017-08-24] MEDS: IV NS 0.9% 1,000 ML IV SCH (05:54)
[2017-08-24 06:35] LABS: BASOPHILS % (AUTO) 0.1 % (0.0-2.0); EOSINOPHILS % (AUTO) 1.6 % (0.0-6.0); HEMATOCRIT 43 % (33-45); HEMOGLOBIN 14.3 g/dL (11.5-14.8); LYMPHOCYTES # (AUTO) 2.5 /CMM (0.8-4.8); LYMPHOCYTES % (AUTO) 9.9 % (20.0-44.0); MEAN CORPUSCULAR HEMOGLOBIN 27 PG (26.0-33.0); MEAN CORPUSCULAR HGB CONC 33 g/dl (31.0-36.0); MEAN CORPUSCULAR VOLUME 79 fL (82-100); MONOCYTES # (AUTO) 2.4 /CMM (0.1-1.30); MONOCYTES % (AUTO) 9.5 % (2.0-12.0); NEUTROPHILS # (AUTO) 20.1 /CMM (1.8-8.9); NEUTROPHILS % (AUTO) 78.9 % (43.0-81.0); PLATELET COUNT (AUTO) 393 /CMM (150-450); RDW COEFFICIENT OF VARIATION 17.4 (11.5-15.0); RED BLOOD CELL COUNT(AUTO) 5.42 MIL/uL (4.0-5.2); WHITE BLOOD COUNT (AUTO) 25.5 K/uL (4.3-11.0)
--- NOTE | 2017-08-24 06:39 | NUR ---
AUTO EMISSIONS TECHNICIAN INITIAL NOTES PATIENT SLEEPING AT THIS TIME, BUT EASILY AROUSABLE, BREATHING EVEN AND UNLABORED, NO S/S OF PAIN OR ANY DISCOMFORT AT THIS TIME, NO SOB/ACUTE DISTRESS NOTED, IV RT HAND 22 G INTACT AND PATENT NO S/S OF INFILTRATION NOTED, IVF FLUIDS RUNNING WELL AND PATIENT TOLERATED WELL, F/C IN PLACED DRAINING YELLOW URINE BY GRAVITY, PATENTCY INTACT, BED LOCKED AND IN LOWEST POSITION, DRY AND CLEAN AND WELL REPOSITIONED AT THIS TIME, NO SIGNIFICANT CHANGE OF CONDITION THROUGHOUT THE NIGHT, ALL MEDS ADMINISTERED ORDERED, CALL LIGHT W/I REACH, WILL ENDORSE CONTINUITY OF CARE TO ONCOMING NURSE.
[2017-08-24 06:46] LABS: CALCIUM, SERUM 7.9 mg/dL (8.5-10.1); CARBON DIOXIDE 18 mmol/L (21-32); CHLORIDE 106 mmol/L (98-107); CREATININE 2.7 mg/dL (0.6-1.3); GLUCOSE 127 mg/dL (74-106); POTASSIUM 3.2 mmol/L (3.5-5.1); SODIUM SERUM 135 mmol/L (136-145); UREA NITROGEN, BLOOD 61 mg/dL (7-18)
[2017-08-24 08:00] VITALS: BP 116/94
--- NOTE | 2017-08-24 08:35 | NUR ---
RN NOTE IT IS OKAY TO CHANGE POTASSIUM TABLETS SCHEDULED AT [address] WHITEHEAD.
[2017-08-24] MEDS: FIDAXOMICIN 200 MG TABLET PO SCH ×2 (08:57→17:41)
[2017-08-24] MEDS: predniSONE 5 MG TABLET PO SCH (08:58)
[2017-08-24] MEDS: PANTOPRAZOLE 40 MG VIAL IV SCH (08:58)
[2017-08-24] MEDS: LACTOBACILLUS RHAMNOSUS GG 1 EACH CAP.SPRINK PO SCH ×2 (08:58→17:41)
[2017-08-24] MEDS: POTASSIUM CHLORIDE 20 MEQ POWDER PACKET PO SCH ×2 (08:59→11:15)
[2017-08-24] MEDS ORDERED: POTASSIUM CHLORIDE 20 MEQ TAB.PRT.SR PO SCH (09:00)
[2017-08-24 12:00] VITALS: BP 123/59
[2017-08-24] MEDS: IV NS 0.9% 1,000 ML IV PRN (13:08)
[2017-08-24 16:00] VITALS: BP 130/64
[2017-08-24] MEDS: INSULIN GLARGINE, 100 UNIT/ML CARTRIDGE SQ SCH (17:52)
--- NOTE | 2017-08-24 19:20 | NUR ---
AIRDROP SYSTEMS TECHNICIAN INITIAL NOTES PATIENT AWAKE IN BED AT THIS TIME, BREATHING EVEN AND UNLABORED, NO S/S OF PAIN OR ANY DISCOMFORT AT THIS TIME, NO SOB/ACUTE DISTRESS NOTED, SON AND DAUGHTER IN LAW AT BEDSIDE AT THIS TIME, IV RT HAND 22 G INTACT AND PATENT NO S/S OF INFILTRATION NOTED, IVF FLUIDS RUNNING WELL AND PATIENT TOLERATED WELL, F/C IN PLACED DRAINING YELLOW URINE BY GRAVITY, PATENTCY INTACT, BED LOCKED AND IN LOWEST POSITION, DRY AND CLEAN AND WELL REPOSITIONED AT THIS TIME, CALL LIGHT W/I REACH, WILL CONTINUE TO MONITOR CLOSELY.
[2017-08-24 20:00] VITALS: BP 146/69
[2017-08-25] VITALS: BP 139/71
[2017-08-25] MEDS: INSULIN REGULAR, HUMAN 100 UNIT/ML 3 ML VIAL SQ PRN ×3 (01:23→12:44)
[2017-08-25] MEDS: BLOOD SUGAR DIAGNOSTIC 1 EACH STRIP IN SCH ×5 (01:23→18:10)
[2017-08-25] MEDS: ACETAMINOPHEN 325 MG TABLET PO PRN ×2 (03:10→09:01)
[2017-08-25 04:00] VITALS: BP 150/75
[2017-08-25] MEDS: VANCOMYCIN HCL 125 MG/2.5 ML ORAL.SUSP PO SCH ×3 (04:50→18:10)
[2017-08-25] MEDS: METRONIDAZOLE 500MG/ NS 100ML 500 MG in PREMIX 1 EA IV SCH ×2 (04:50→13:16)
[2017-08-25] MEDS: IV NS 0.9% 1,000 ML IV PRN (04:51)
[2017-08-25] MEDS: VANCOMYCIN FOR RECTAL ENEMA 500 MG RC SCH ×3 (05:04→18:00)
--- NOTE | 2017-08-25 06:37 | NUR ---
SURGEON CHIEF CLOSING NOTES PATIENT SLEEPING AT THIS TIME, BREATHING EVEN AND UNLABORED, NO S/S OF PAIN OR ANY DISCOMFORT AT THIS TIME, NO FACIAL GRIMACING NOTED AT THIS TIME, NO SOB/ACUTE DISTRESS NOTED, WITH OPTIMAL 02 SATURATION AND VS, IV RT HAND 22 G INTACT AND PATENT NO S/S OF INFILTRATION NOTED, IVF FLUIDS RUNNING WELL AND PATIENT TOLERATED WELL, F/C IN PLACED DRAINING YELLOW URINE BY GRAVITY, PATENTCY INTACT, NO C/O PAIN OR DISCOMFORT AT THIS TIME, BED LOCKED AND IN LOWEST POSITION, DRY AND CLEAN AND WELL REPOSITIONED AT THIS TIME, NO SIGNIFICANT CHANGE IN CONDITION THROUGHOUT THE NIGHT, CALL LIGHT W/I REACH, WILL ENDORSE TO ONCOMING NURSE FOR CONTINUITY OF CARE.
[2017-08-25 08:00] VITALS: BP_SYST 125; BP_SYST 143; BP_DIAS 71; BP_DIAS 79
[2017-08-25 08:03] LABS: D-DIMER 3.8 mg/L(FEU (0.17-0.50); INR 2.04 (0.87-1.13)
[2017-08-25] MEDS: PANTOPRAZOLE 40 MG VIAL IV SCH (09:00)
[2017-08-25] MEDS: LACTOBACILLUS RHAMNOSUS GG 1 EACH CAP.SPRINK PO SCH ×2 (09:00→18:10)
--- NOTE | 2017-08-25 09:00 | NUR ---
RN NOTE PT CO PAIN HER LEGS AND STOMACH, MOANING, SCREAMS WHEN TOUCHED, WILL GIVE TYLENOL, BUT PT WANTS SOMETHING STRONGER.
[2017-08-25] MEDS: predniSONE 5 MG TABLET PO SCH (09:01)
[2017-08-25] MEDS: FIDAXOMICIN 200 MG TABLET PO SCH ×2 (09:01→18:10)
[2017-08-25 09:23] LABS: CARBON DIOXIDE 17 mmol/L (21-32); CHLORIDE 105 mmol/L (98-107); GLUCOSE 148 mg/dL (74-106); POTASSIUM 4.1 mmol/L (3.5-5.1); SODIUM SERUM 136 mmol/L (136-145)
[2017-08-25 09:24] LABS: CALCIUM, SERUM 8.6 mg/dL (8.5-10.1); CREATININE 2.2 mg/dL (0.6-1.3); UREA NITROGEN, BLOOD 51 mg/dL (7-18)
[2017-08-25 09:29] LABS: ALANINE AMINOTRANSFERASE 27 U/L (12-78); ALBUMIN 1.7 g/dL (3.4-5.0); ALKALINE PHOSPHATASE 188 U/L (46-116); BILIRUBIN,TOTAL 0.8 mg/dL (0.2-1.0); MAGNESIUM 1.8 mg/dL (1.8-2.4); PHOSPHORUS 4.3 mg/dL (2.5-4.9); TOTAL PROTEIN, SERUM 5.9 g/dL (6.4-8.2)
[2017-08-25 10:08] LABS: ASPARTATE AMINOTRANSFERASE 43 U/L (15-37)
[2017-08-25] MEDS ORDERED: IBUPROFEN 600 MG TABLET PO ONE (11:30)
[2017-08-25 12:00] VITALS: BP 144/79
[2017-08-25] MEDS ORDERED: HYDROGEL DRESSING 90 GM TUBE TP PRN (12:00)
[2017-08-25] MEDS ORDERED: HYDROGEL DRESSING 90 GM TUBE TP SCH (12:00)
--- NOTE | 2017-08-25 12:02 | NUR ---
WOUND CARE CONSULT WOUND CARE CONSULT RECEIVED FOR SACRAL STAGE 2 ULCER. PATIENT SEEN AND SACRAL ULCER EVALUATED. PATIENT PRESENTS WITH STAGE 2 PRESSURE ULCER. SEE MAINFRAME PROGRAMMER ASSESSMENT IN [facility] FOR TODAY. RECOMMEND CLEANSE WITH NS, PAT DRY, APPLY HYDROGEL TO THE OPEN AREA, COVER WITH MEPILEX DRESSING DAILY AND PRN SOILING. ALL DISCUSSED WITH NURSING AT THE BEDSIDE. ALL PRESSURE ULCER PREVENTION MEASURES ARE NOTED TO BE IN PLACE. PATIENT HAD SACRAL SCARRING POA. PATIENT WITH CURRENT JASEN AT 11. Addendum: 08/25/17 at 1214 by CALIN GATICA WNDNU Amended: Links added.
[2017-08-25 13:29] LABS: INR 2.06 (0.87-1.13)
[2017-08-25 16:00] VITALS: BP 135/69
--- NOTE | 2017-08-25 18:00 | NUR ---
RN NOTE PT DISCHARGED TO [facility] [phone] [facility], REPORT GIVEN TO DANA ZEPEDA, PT IN STABLE CONDITION, FAMILY AWARE, DISCHARGE INSTRUCTIONS GIVEN TO PT AND AMBULANCE, EXIT CARE DONE, MEDICATION LIST PROVIDED, OLD IV REMOVED, MIDLINE LEFT IN PLACE, SEGURA REMOVED, BELONGING LIST SIGNED, PT HAS DENTURES IN HER MOUTH. TEACHING REINFORCED TO PT, PT UNABLE TO RETURN DEMONSTRATION/VERBALIZE UNDERSTANDING. PICTURES TAKEN AND PLACED IN CHART.
[2017-08-25] MEDS: INSULIN GLARGINE, 100 UNIT/ML CARTRIDGE SQ SCH (18:12)
== END 2017-08-25 18:26 | disposition home health service (06) | DRG 720 ==
LOC: ER 16:05 → TELE-TD 18:49 → TELE1 08-19 20:16 → MEDSG1 08-25 09:41
PROVIDERS: ADMIT Registered Nurse; ATTEND Registered Nurse
PROC: 30233M1 Transfusion of Nonautologous Plasma Cryoprecipitate into Peripheral Vein, Percutaneous Approach (ICD-10-PCS; principal; 2017-08-21)
PROC: 30233K1 Transfusion of Nonautologous Frozen Plasma into Peripheral Vein, Percutaneous Approach (ICD-10-PCS; principal; 2017-08-21)
PROC: 05H533Z Insertion of Infusion Device into Right Subclavian Vein, Percutaneous Approach (ICD-10-PCS; 2017-08-25)
PROC: B546ZZA Ultrasonography of Right Subclavian Vein, Guidance (ICD-10-PCS; 2017-08-25)
DX: A41.4 Sepsis due to anaerobes (principal); I21.A1 Myocardial infarction type 2; D65 Disseminated intravascular coagulation [defibrination syndrome]; N17.0 Acute kidney failure with tubular necrosis; G92 Toxic encephalopathy; D68.9 Coagulation defect, unspecified; A07.8 Other specified protozoal intestinal diseases; I50.23 Acute on chronic systolic (congestive) heart failure; I25.3 Aneurysm of heart; I13.0 Hypertensive heart and chronic kidney disease with heart failure and stage 1 through stage 4 chronic kidney disease, or unspecified chronic kidney disease; A04.72 Enterocolitis due to Clostridium difficile, not specified as recurrent; R65.20 Severe sepsis without septic shock; N18.9 Chronic kidney disease, unspecified; N39.0 Urinary tract infection, site not specified; B96.20 Unspecified Escherichia coli [E. coli] as the cause of diseases classified elsewhere; E11.22 Type 2 diabetes mellitus with diabetic chronic kidney disease; E86.9 Volume depletion, unspecified; E87.6 Hypokalemia; F03.90 Unspecified dementia, unspecified severity, without behavioral disturbance, psychotic disturbance, mood disturbance, and anxiety; Z88.5 Allergy status to narcotic agent; Z79.82 Long term (current) use of aspirin; Z79.899 Other long term (current) drug therapy; Z79.01 Long term (current) use of anticoagulants; Z79.4 Long term (current) use of insulin; Z79.52 Long term (current) use of systemic steroids; Z96.641 Presence of right artificial hip joint; B96.89 Other specified bacterial agents as the cause of diseases classified elsewhere; Z86.73 Personal history of transient ischemic attack (TIA), and cerebral infarction without residual deficits; F32.9 Major depressive disorder, single episode, unspecified; G93.89 Other specified disorders of brain
CPT/HCPCS: 36415; 36600; 70450-TC; 71045-TC; 80048-TC; 80053-TC; 80076-TC; 80202-TC; 81000-TC; 82272-TC; 82728-TC; 82962-TC; 83540-TC; 83605-TC; 83690-TC; 83735-TC; 83880; 84100-TC; 84443-TC; 84484-TC; 85025-TC; 85385-TC; 85396; 85610-TC; 85730-TC; 86850-TC; 87040-TC; 87081-TC; 87086-TC; 87177; 87186-TC; 87209; 89055; 92611-TC; 93307-TC; A4216; A4606; A6248; A6402; C9113; J1815; J1940; J2185; J2543; J3370; J3430; J3480; J3490; J7030; J7040; J7050; J7060; J7512; P9012; P9017-BL; Z7610

== ENCOUNTER 2017-08-27 16:06 | Inpatient (IN) | payer OTHER, MEDICARE ==
[~2017-08-27] VITALS: Ht 157.5 cm; Wt 71.7 kg
[~2017-08-27 16:06] MED LIST: ACET325T53 PO; ASPI-1169 PO; BLOO-668 IN; CARV6.252 PO; HYDR-4077 PO; INSU100V11 SQ; INSU100V7 SQ; ISOS20TA8 PO; LOPE1LIQ56 PO; LOSA25TA13 PO; PRED2.5T PO; SERT50TA PO
--- NOTE | 2017-08-27 16:10 | NUR ---
PT BIBRA FROM SNF TO ER BED 09. PER REPORT, PT IS MORE ALTERED THAN NORMAL, NOTED TO BE SHORT OF BREATH. PT IS ON VANCOMYCIN FOR C DIFF. GOWNE AND PLACED ON MONITOR. AFEBRILE ACID PATROLLER. AWAITING MD BERGER.
--- NOTE | 2017-08-27 16:11 | NUR ---
DR ROSE AT BEDSIDE FOR EVAL.
[2017-08-27] MEDS ORDERED: VANC125C11 PO (16:25)
[2017-08-27] MEDS ORDERED: FIDA200T PO (16:25)
[2017-08-27] MEDS ORDERED: ZINC56.7 TP (16:25)
[2017-08-27] MEDS ORDERED: LOPE-156 PO (16:25)
[2017-08-27] MEDS ORDERED: METR500T PO (16:25)
[2017-08-27] MEDS ORDERED: WARF6TAB23 PO (16:25)
--- NOTE | 2017-08-27 16:25 | NUR ---
RADIOLOGY AT BEDSIDE FOR CHEST XRAY.
[2017-08-27] MEDS ORDERED: IV NS 0.9% 500 ML BAG IV ONE (16:30)
[2017-08-27 16:36] LABS: ABG BASE EXCESS -11.7 mmol/L; ABG OXYGEN SATURATION 93.5 % (92.0-98.5); ABG PCO2 27.3 mmHg (35.0-45.0); ABG PH 7.299 (7.350-7.450); ABG PO2 73.4 mmHg (75.0-100.0); COHb 0.9 % (0.5-1.5); MetHb 0.4 % (0.0-1.5); O2Hb 92.3 % (94.0-97.0); SITE, ABG Left Brachial; VENT MODE, BG NASAL CANNULA
[2017-08-27 16:41] LABS: BASOPHILS # (AUTO) 0.3 /CMM (0.0-0.2); BASOPHILS % (AUTO) 1.3 % (0.0-2.0); EOSINOPHILS % (AUTO) 0.5 % (0.0-6.0); HEMATOCRIT 41 % (33-45); HEMOGLOBIN 13.8 g/dL (11.5-14.8); LYMPHOCYTES # (AUTO) 1.7 /CMM (0.8-4.8); LYMPHOCYTES % (AUTO) 8.2 % (20.0-44.0); MEAN CORPUSCULAR HEMOGLOBIN 27 PG (26.0-33.0); MEAN CORPUSCULAR HGB CONC 34 g/dl (31.0-36.0); MEAN CORPUSCULAR VOLUME 78 fL (82-100); MONOCYTES # (AUTO) 1.2 /CMM (0.1-1.30); PLATELET COUNT (AUTO) 407 /CMM (150-450); RDW COEFFICIENT OF VARIATION 16.2 (11.5-15.0); RED BLOOD CELL COUNT(AUTO) 5.18 MIL/uL (4.0-5.2); WHITE BLOOD COUNT (AUTO) 20.3 K/uL (4.3-11.0)
[2017-08-27 16:53] LABS: CALCIUM, SERUM 9.2 mg/dL (8.5-10.1); CARBON DIOXIDE 14 mmol/L (21-32); CHLORIDE 105 mmol/L (98-107); CREATININE 2.1 mg/dL (0.6-1.3); GLUCOSE 328 mg/dL (74-106); POTASSIUM 4.3 mmol/L (3.5-5.1); SODIUM SERUM 133 mmol/L (136-145); UREA NITROGEN, BLOOD 60 mg/dL (7-18)
[2017-08-27 16:59] LABS: ALANINE AMINOTRANSFERASE 33 U/L (12-78); ALKALINE PHOSPHATASE 380 U/L (46-116); ASPARTATE AMINOTRANSFERASE 45 U/L (15-37); BILIRUBIN,DIRECT 0.5 mg/dL (0.0-0.2); TOTAL PROTEIN, SERUM 6.1 g/dL (6.4-8.2)
[2017-08-27 17:01] LABS: INR 3.12 (0.85-1.15)
[2017-08-27 17:08] LABS: SERUM AMMONIA 12 umol/L (11-32)
[2017-08-27 17:09] LABS: APPEARANCE,URINE Cloudy (CLEAR); BILIRUBIN,URINE SMALL (NEGATIVE); BLOOD, URINE Negative Ery/uL (NEGATIVE); COLOR,URINE Amber (YELLOW); KETONES,URINE Negative (NEGATIVE); LEUKOCYTE ESTERASE ,URINE Trace (NEGATIVE); NITRITE, URINE Positive (NEGATIVE); PH,URINE 5.5 (5.0-8.0); PROTEIN,URINE 30 mg/dl (NEGATIVE); UGLUCOSE Negative (NEGATIVE); UROBILINOGEN,URINE 0.2 EU/dL (0.2)
[2017-08-27 17:15] LABS: TROPONIN I 1.096 ng/mL (0.00-0.056)
[2017-08-27 17:30] LABS: BACTERIA,URINE 3+ /HPF (None Seen); SQUAMOUS EPITHELIAL CELL,UR Few /HPF (None Seen)
--- NOTE | 2017-08-27 17:35 | NUR ---
PT TO RADIOLOGY FOR HEAD CT SCAN VIA [facility].
--- NOTE | 2017-08-27 17:42 | NUR ---
TELE 325-1 FOR SEPSIS, UTI, ACS, NSTEMI, KAM SOTO ADMITTING
[2017-08-27] MEDS ORDERED: PIPERACILLIN /TAZOBACTAM 3.375 G in IV D5W 50 ML IV ONE (18:00)
--- NOTE | 2017-08-27 18:02 | NUR ---
REPORT GIVEN TO NE. PT AWAITING TRANSFER TO FLOOR.
[2017-08-27] MEDS ORDERED: IV NS 0.9% 1,000 ML IV PRN ×2 (18:29→19:57)
[2017-08-27] MEDS ORDERED: ACETAMINOPHEN 325 MG TABLET PO PRN ×2 (18:30)
[2017-08-27] MEDS ORDERED: ONDANSETRON HCL/PF 4 MG/2 ML VIAL IVP PRN (18:30)
[2017-08-27] MEDS ORDERED: MAGNESIUM HYDROXIDE 30 ML UDC PO PRN (18:30)
[2017-08-27] MEDS ORDERED: DEXTROSE 50%-WATER 50 ML DISP.SYRIN IV PRN (18:30)
[2017-08-27] MEDS ORDERED: MAG HYDROX/AL HYDROX/SIMETH 30 ML UDC PO PRN (18:30)
[2017-08-27] MEDS ORDERED: MORPHINE SULFATE INJ 2 MG/ML DISP.SYRIN IV PRN (18:30)
[2017-08-27 18:32] LABS: LYMPHOCYTES % (MANUAL) 7 % (16-48); MONOCYTES % (MANUAL) 3 % (0-11.0); NEUTROPHILS % (MANUAL) 90 (42-76)
--- NOTE | 2017-08-27 18:40 | NUR ---
TRANSFERED TO FLOOR IN STABLE CONDITION.
[2017-08-27 19:08] LABS: THYROID STIMULATING HORMONE 2.132 uIU/mL (0.358-3.74)
--- NOTE | 2017-08-27 19:17 | NUR ---
DEPUTY COUNTY CLERK ADMITTING NOTES PATIENT ADMITTED TO UNIT AT 1835 VIA GURNEY ACCOMPANIED BY ER NURSE KELI AND PT'S FAMILY. PT IS ALERT XI, CONFUSED AND ABLE TO COMMUNICATE IN GREEK ONLY, DENIES PAIN AT THIS TIME. PT AND FAMILY ORIENTED TO UNIT AND PT'S ROOM. V/S TAKEN; BP 123/68MMHG, P 101, R 18 AND T 98.1F. PT PLACED ON 02 VIA N/C AT 3LPM, TOLERATING WELL WITH NO SOB NOTED, SP02 98%. PT'S ADMITTING DIAGNOSIS IS SEPSIS. AFEBRILE AND TO START ON ANTIBIOTIC THERAPIES. PT HAS DOUBLE LUMEN PICC LINE ON BELINDA IN PLACE AND PATENT, PT TO START ON IVF PRESCRIBED. PT PLACED ON TELE-MONITORING WITH CURRENT READING OF SR AND HR OF 101, NO C/O CARDIAC DISTRESS VOICED. PT WITH SEGURA CATHETER IN PLACE WITH CLEAR TEA COLORED URINE OUTPUT. ALL SAFETY MEASURES INITIATED. HOB ELEVATED. BED PLACED IN LOW/LOCKED POSITION WITH SIDE-RAILS UP X3. CALL LIGHT PLACED IN REACH. PT ON NPO ORDERED. ENDORSED TO DRY ROOM OPERATOR NURSE CHANO TO COMPLETE INITIAL AND PHYSICAL ASSESSMENT OF PT.
--- NOTE | 2017-08-27 19:40 | NUR ---
BEDSPRING ASSEMBLER NOTE RECEIVED PATIENT FROM DAY SHIFT RN FOR ADMISSION, PATIENT IS ALERTX1, FAMILY AT BED SIDE, NO S/S OF RESPIRATORY DISTRESS AND COMPLAINS OF ABDOMINAL PAIN AT THIS TIME. MID LINE ON RIGHT UPPER ARM IS PATENT AND INTACT. EDEMA PRESENT ON BOTH EXTREMITIES, BLE +2 PITTING EDEMA, BUE +[address] TELE MONITOR [address] 104. SRX2, BED IN LOW POSITION, CALL LIGHT WITHIN REACH, WILL CONTINUE TO MONITOR PATIENT.
[2017-08-27 20:00] VITALS: BP 120/73
[2017-08-27] MEDS: METRONIDAZOLE 500MG/ NS 100ML 500 MG in PREMIX 1 EA IV SCH (20:17)
--- NOTE | 2017-08-27 20:30 | NUR ---
DIRECTOR OF DIGITAL PLATFORMS NOTE PATIENT'S FAMILY WAS CONCERNED THAT PATIENT HAD C.DIFF POSITIVE ON PRIOR [facility] HOSPITALIZATION(08/19/17) AND URINE ESBL ALSO. NOTIFIED CHG RN AND TRANSFERRED PT TO THE OTHER ROOM FROM [facility] TO [facility]. CONTACT ISOLATION WILL BE OBSERVED.
[2017-08-27] MEDS ORDERED: MEROPENEM 500 MG in IV NS 0.9% 50 ML IV SCH (21:00)
[2017-08-27] MEDS: SERTRALINE HCL 50 MG TABLET PO SCH (22:00)
[2017-08-27] MEDS ORDERED: BLOOD SUGAR DIAGNOSTIC 1 EACH STRIP IN SCH (22:00)
--- NOTE | 2017-08-27 22:00 | NUR ---
DEPUTY HARBORMASTER NOTE GOT A C-DIFF STOOL SAMPLE FROM THE PATIENT, AND DROPPED TO THE LAB WITH A FORM SIGNED BY RICHIE RN PER PROTOCOL.
--- NOTE | 2017-08-27 22:15 | NUR ---
ORGAN PIPE FINISHER NOTE PATIENT COMPLAINS OF ABDOMINAL PAIN AND PATIENT'S DAUGHTER STATED THAT PT IS VERY SENSITIVE TO MORPHINE (NOT ALLERGIC TO IT). PREVIOUS MORPHINE 2MG IV WAS DISCONTINUED BY SHALONDA SOTO. PAGED DR BENJAMIN AND GAVE MINIMAL DOSE OF MORPHINE 1MG IV Q4H PRN. ORDERS PUT IN WILL CARRY OUT NEEDED.
--- NOTE | 2017-08-27 22:30 | NUR ---
MANAGER DIGITAL AD OPERATIONS NOTE PATIENT'S BS AT 2210 WAS 279MG/DL, NPO STATUS AND NO IV FLUID DUE TO HX OF CHF. NOTIFIED ONCALL MD BENJAMIN TO SEE IF PT STILL GETS 20 UNITS OF LANTUS AND 6 UNITS OF REGULAR INSULIN PER SLIDING SCALE, HE STATED THAT JUST GIVE LANTUS FOR NOW. LANTUS GIVEN SQ. WILL MONITOR HER BS IN AM.
[2017-08-27] MEDS: BLOOD SUGAR DIAGNOSTIC 1 EACH STRIP IN SCH (22:56)
[2017-08-27] MEDS: INSULIN GLARGINE, 100 UNIT/ML CARTRIDGE SQ SCH (23:03)
[2017-08-28] VITALS (14 sets, daily range): BP systolic 87–135; BP diastolic 42–81
--- NOTE | 2017-08-28 00:22 | NUR ---
RN OFFICE NOTE GOT A CRITICAL RESULT OF HER TROP 7.379 FROM THE LAB, NOTIFIED DR. BENJAMIN BUT STATED 'CONTACT THE ONCALL PEDIGREE TRACER.' CALLED ONCALL PEDIGREE TRACER DR. HERNANDEZ AND NOTIFIED HER HX, VS AND PT'S CONDITION AND TROP LEVEL. HE STATED IF PATIENT IS ASYMPTOMATIC, JUST REDRAW AT 0500 IN AM AND LET MORNING PEDIGREE TRACER EVALUATE HER. PATIENT IS SLEEPING, ASYMPTOMATIC, VS WNL. TELE MONITOR ST 102. WILL CONTINUE TO MONITOR PATIENT.
[2017-08-28] MEDS ORDERED: MORPHINE SULFATE INJ 2 MG/ML DISP.SYRIN IV PRN (00:30)
[2017-08-28] MEDS: METRONIDAZOLE 500MG/ NS 100ML 500 MG in PREMIX 1 EA IV SCH ×3 (05:02→21:49)
[2017-08-28] MEDS: VANCOMYCIN HCL 125 MG/2.5 ML ORAL.SUSP PO SCH ×4 (06:00→18:05)
[2017-08-28] MEDS: BLOOD SUGAR DIAGNOSTIC 1 EACH STRIP IN SCH ×4 (06:05→22:14)
[2017-08-28 06:19] LABS: ALANINE AMINOTRANSFERASE 32 U/L (12-78); ALBUMIN 1.8 g/dL (3.4-5.0); ALKALINE PHOSPHATASE 260 U/L (46-116); ASPARTATE AMINOTRANSFERASE 86 U/L (15-37); BILIRUBIN,DIRECT 0.3 mg/dL (0.0-0.2); BILIRUBIN,TOTAL 0.8 mg/dL (0.2-1.0); CALCIUM, SERUM 8.8 mg/dL (8.5-10.1); CARBON DIOXIDE 16 mmol/L (21-32); CHLORIDE 106 mmol/L (98-107); GLUCOSE 277 mg/dL (74-106); PHOSPHORUS 4.9 mg/dL (2.5-4.9); POTASSIUM 4.1 mmol/L (3.5-5.1); SODIUM SERUM 134 mmol/L (136-145); TOTAL PROTEIN, SERUM 5.6 g/dL (6.4-8.2); UREA NITROGEN, BLOOD 57 mg/dL (7-18)
[2017-08-28 06:21] LABS: EOSINOPHILS % (AUTO) 0.4 % (0.0-6.0); HEMATOCRIT 39 % (33-45); HEMOGLOBIN 13.5 g/dL (11.5-14.8); LYMPHOCYTES # (AUTO) 2.3 /CMM (0.8-4.8); LYMPHOCYTES % (AUTO) 12.4 % (20.0-44.0); MEAN CORPUSCULAR HEMOGLOBIN 27 PG (26.0-33.0); MEAN CORPUSCULAR HGB CONC 35 g/dl (31.0-36.0); MEAN CORPUSCULAR VOLUME 79 fL (82-100); MONOCYTES # (AUTO) 1.2 /CMM (0.1-1.30); MONOCYTES % (AUTO) 6.2 % (2.0-12.0); NEUTROPHILS # (AUTO) 15.3 /CMM (1.8-8.9); PLATELET COUNT (AUTO) 354 /CMM (150-450); RDW COEFFICIENT OF VARIATION 16.1 (11.5-15.0); RED BLOOD CELL COUNT(AUTO) 4.96 MIL/uL (4.0-5.2); WHITE BLOOD COUNT (AUTO) 18.9 K/uL (4.3-11.0)
[2017-08-28 06:27] LABS: CHOLESTEROL 111 mg/dL (<200); HDL CHOLESTEROL 11 mg/dL (40-60); LDL 60 mg/dL (0-99); THYROID STIMULATING HORMONE 1.502 uIU/mL (0.358-3.74); TRIGLYCERIDES 154 mg/dL (30-150)
[2017-08-28 06:28] LABS: TROPONIN I 21.047 ng/mL (0.00-0.056)
--- NOTE | 2017-08-28 06:45 | NUR ---
SCALP SPECIALIST NOTE PATIENT IS RESTING, BREATHING EVEN AND UNLABORED, NO S/S OF PAIN OR ANY DISCOMFORT AT THIS TIME, NO FACIAL GRIMACING NOTED ALSO. F/C IN PLACED DRAINING TEA COLOR URINE BY GRAVITY. TELE ST 104. BED LOCKED AND IN LOWEST POSITION, DRY AND CLEAN AND WELL REPOSITIONED AT THIS TIME, CALL LIGHT W/I REACH, WILL ENDORSE TO DAY SHIFT NURSE FOR NYLA.
--- NOTE | 2017-08-28 07:05 | NUR ---
RUBBER TURNER NOTES PATIENT IN BED EYES CLOSED, AROUSABLE. VERBALLY RESPONSIVE. NO ACUTE DISTRESS NOTED. BREATHING UNLABORED. DENIED ANY PAIN,NO FACIAL GRIMACING NOTED. IV ACCESS PATENT AND INTACT, NO REDNESS OR SWELLING NOTED. SEGURA CATHETER INTACT DRAINING WELL. SAFETY MEASURES IN PLACE. HOB ELEVATED. CALL LIGHT WITHIN REACH. WILL CONTINUE TO MONITOR ACCORDINGLY.
[2017-08-28] MEDS: FUROSEMIDE 100 MG/10 ML VIAL IV SCH ×3 (08:30→15:16)
[2017-08-28] MEDS: PANTOPRAZOLE 40 MG VIAL IV SCH ×2 (08:39→21:00)
--- NOTE | 2017-08-28 08:49 | NUR ---
DIRECTOR GENERAL NOTES CLARIFIED DIET ORDERS WITH SAND BOBBER KAM SOTO WITH ORDERS FOR CARDIAC DIABETIC REGULAR TEXTURE DIET. NOTED AND CARRIED OUT.
[2017-08-28] MEDS: ASPIRIN 81 MG TAB.CHEW PO SCH (09:45)
[2017-08-28] MEDS: ISOSORBIDE DINITRATE (20MG) 20 MG TABLET PO SCH ×2 (09:45→17:00)
[2017-08-28] MEDS: predniSONE 5 MG TABLET PO SCH (09:45)
[2017-08-28] MEDS: CARVEDILOL 6.25 MG TABLET PO SCH ×2 (09:46→17:00)
[2017-08-28] MEDS: hydrALAZINE HCL 50 MG TABLET PO SCH ×2 (09:46→17:00)
[2017-08-28] MEDS: FIDAXOMICIN 200 MG TABLET PO SCH ×2 (09:54→17:54)
[2017-08-28] MEDS: ZINC OXIDE 56.7 GM TUBE TP SCH (09:55)
--- NOTE | 2017-08-28 12:28 | NUR ---
PRELIMINARY ECHO FINDING SHOWED EF 35%~ WITH POSSIBLE LV APEX ANEURYSM. INFORMED CHARGE NURSE (FLAKITA) AND DR. WHITEHEAD.
[2017-08-28] MEDS: INSULIN REGULAR, HUMAN 100 UNIT/ML 3 ML VIAL SQ PRN ×2 (13:04→18:22)
--- NOTE | 2017-08-28 13:30 | NUR ---
BIOLOGY PROFESSOR NOTES [employer] SALES REPRESENTATIVE KAM SOTO MADE AWARE OF TROPONIN AND LIPASE LEVEL.
--- NOTE | 2017-08-28 14:15 | NUR ---
V BELT COVERER NOTES PATIENT TRANSFERED TO ICU FOR CLOSER MONITORING REPORT GIVEN TO ROSS. NO ACUTE DISTRESS NOTED. BREATHING UNLABORED. V/S STABLE. FAMILY AT BEDSIDE.
--- NOTE | 2017-08-28 14:20 | NUR ---
ICU/RN PT TRANSFERRED FROM [facility] .FOR CLOSER OBSERVATION.PT IS ALOC.RESPONSIVE ON PAIN STIMULATION.ON 3L N/C SAT O2-98%.V/S STABLE,AFEBRILE.NO PAIN REPORTED AT THIS TIME.IV-HL.RIGHT UPPER ARM MIDLINE.F/C DRAINING WITH YELLOW URINE.MULTIPLY BRUISES NOTED ALL OVER THE BODY,WOUND ON THE LOWER BACK NOTED.GENERALIZED EDEMA PRESENT.REPOSITION FOR COMFORT .FAMILY AT BEDSIDE.
--- NOTE | 2017-08-28 15:11 | NUR ---
Patient currently resident of [facility] ctr [phone]. She requires max assist with adl's, ambulates with assistive device. Daughter Inez is involved and supportive with plan of care. Current plan is to dc back to SNF once d/c. Addendum: 08/28/17 at 1512 by CARLIAT REAL RN Amended: Links added.
[2017-08-28 16:07] LABS: INR 3.29 (0.87-1.13)
[2017-08-28] MEDS: WARFARIN SODIUM 2 MG TABLET PO SCH (17:00)
[2017-08-28] MEDS: Z GUARD REMEDY 4 OZ OINT TP SCH (17:53)
[2017-08-28] MEDS: MEROPENEM 500 MG in IV NS 0.9% 50 ML IV SCH (17:53)
--- NOTE | 2017-08-28 19:00 | NUR ---
JAVA SWING DEVELOPER NOTES Received patient,asleep ,awakens but slightly lethargic once awakens ,briefly spekas to family members then falls back to sleep.Not staying alert enough to follow instructions.Not in any distress,breathing regular and non labored.Midline @ [facility] ,reagan catheter intact.Comfort care done,needs attended.Family at bedside.
[2017-08-28] MEDS ORDERED: METRONIDAZOLE 500MG/ NS 100ML 500 MG in PREMIX 1 EA IV SCH (21:00)
[2017-08-28] MEDS: INSULIN GLARGINE, 100 UNIT/ML CARTRIDGE SQ SCH (22:00)
--- NOTE | 2017-08-28 22:00 | NUR ---
SOLUTIONS DEVELOPMENT ANALYST NOTES Patient's daughter does not want me to administer insulin coverage both regular and Lantus claims she was told by the TYPING POOL SUPERVISOR Sandra (who came to see the patient david)that patient should not be eating anything at all,so the daughter is concerned patients blood sugar will drop.But SHALONDA Flores did not order nor mention to me that patient will be NPO.Also daughter does not want me to give the Protonix because patient is suppose to eat after giving Protonix as well. Message sent to SHALONDA Flores to verify if she wants to put patient NPO,awaiting response.
[2017-08-28] MEDS ORDERED: SERTRALINE HCL 25 MG TABLET ONE (22:46)
[2017-08-28] MEDS: SERTRALINE HCL 50 MG TABLET PO SCH (22:49)
[2017-08-29] VITALS (26 sets, daily range): BP systolic 84–123; BP diastolic 29–68
--- NOTE | 2017-08-29 | NUR ---
SPRAY WORKER NOTES PATIENT RESTLESS,COMFORT CARE DONE,SKIN CARE DONE ,HAD YELLOWISH DIARRHEA WITH SLIGHT BLOOD STREAK,. 0200 PATIENT CALMER,STABLE,ASLEEP BUT EASILY AROUSABLE,FOLLOWS COMMANDS.PATIENT SEEMS MORE ALERT AND MORE RESPONSIVE NOW
[2017-08-29] MEDS: METRONIDAZOLE 500MG/ NS 100ML 500 MG in PREMIX 1 EA IV SCH ×3 (04:55→20:24)
--- NOTE | 2017-08-29 05:00 | NUR ---
WIRE WRAPPING MACHINE OPERATOR NOTES sTYABLE,AWAKE,ALERT,FOLLOWS COMMMANDS,HAD ANOTHE R EPISODE OF SOFT YELLOWISH BM,SKIN CARE DONE. 0700 REPORT GIVEN TO BERTA RN.
[2017-08-29] MEDS: MEROPENEM 500 MG in IV NS 0.9% 50 ML IV SCH ×2 (05:35→17:25)
[2017-08-29 06:10] LABS: INR 3.42 (0.87-1.13)
[2017-08-29 06:16] LABS: ALANINE AMINOTRANSFERASE 26 U/L (12-78); ALBUMIN 1.8 g/dL (3.4-5.0); ALKALINE PHOSPHATASE 206 U/L (46-116); ASPARTATE AMINOTRANSFERASE 52 U/L (15-37); BILIRUBIN,TOTAL 0.7 mg/dL (0.2-1.0); CALCIUM, SERUM 8.5 mg/dL (8.5-10.1); CARBON DIOXIDE 18 mmol/L (21-32); CHLORIDE 107 mmol/L (98-107); GLUCOSE 195 mg/dL (74-106); LIPASE 1408 U/L (73-393); PHOSPHORUS 4.4 mg/dL (2.5-4.9); POTASSIUM 3.6 mmol/L (3.5-5.1); SODIUM SERUM 136 mmol/L (136-145); TOTAL PROTEIN, SERUM 5.5 g/dL (6.4-8.2); UREA NITROGEN, BLOOD 56 mg/dL (7-18)
[2017-08-29 06:20] LABS: BASOPHILS % (AUTO) 0.4 % (0.0-2.0); EOSINOPHILS % (AUTO) 1.4 % (0.0-6.0); HEMATOCRIT 39 % (33-45); LYMPHOCYTES % (AUTO) 17.3 % (20.0-44.0); MEAN CORPUSCULAR HEMOGLOBIN 26 PG (26.0-33.0); MEAN CORPUSCULAR HGB CONC 34 g/dl (31.0-36.0); MEAN CORPUSCULAR VOLUME 78 fL (82-100); MONOCYTES % (AUTO) 7.9 % (2.0-12.0); PLATELET COUNT (AUTO) 362 /CMM (150-450); RDW COEFFICIENT OF VARIATION 17.2 (11.5-15.0); WHITE BLOOD COUNT (AUTO) 16.4 K/uL (4.3-11.0)
[2017-08-29 06:21] LABS: TROPONIN I 9.662 ng/mL (0.00-0.056)
--- NOTE | 2017-08-29 07:50 | NUR ---
ALL PINK STOCK MED ONCE CLEARED FOR PATIENTS SAFETY.
[2017-08-29] MEDS: INSULIN REGULAR, HUMAN 100 UNIT/ML 3 ML VIAL SQ PRN ×3 (08:15→21:23)
[2017-08-29] MEDS: BLOOD SUGAR DIAGNOSTIC 1 EACH STRIP IN SCH ×4 (08:15→21:16)
[2017-08-29] MEDS: PANTOPRAZOLE 40 MG VIAL IV SCH ×2 (08:17→20:27)
[2017-08-29] MEDS: FIDAXOMICIN 200 MG TABLET PO SCH ×3 (08:18→17:25)
[2017-08-29] MEDS: ASPIRIN 81 MG TAB.CHEW PO SCH (08:18)
[2017-08-29] MEDS: predniSONE 5 MG TABLET PO SCH (08:18)
[2017-08-29] MEDS: ZINC OXIDE 56.7 GM TUBE TP SCH (08:19)
[2017-08-29] MEDS: Z GUARD REMEDY 4 OZ OINT TP SCH ×2 (08:20→20:35)
[2017-08-29] MEDS: HYDROCODONE/APAP 5/325MG 1 EACH TABLET PO PRN ×3 (08:28→14:47)
[2017-08-29] MEDS: CARVEDILOL 6.25 MG TABLET PO SCH ×2 (08:35→17:22)
[2017-08-29] MEDS: hydrALAZINE HCL 50 MG TABLET PO SCH ×2 (08:45→17:00)
[2017-08-29] MEDS: ISOSORBIDE DINITRATE (20MG) 20 MG TABLET PO SCH ×2 (08:45→17:00)
[2017-08-29] MEDS ORDERED: SERTRALINE HCL 25 MG TABLET PO SCH (09:11)
[2017-08-29] MEDS: WARFARIN SODIUM 2 MG TABLET PO SCH (17:23)
[2017-08-29] MEDS ORDERED: VANCOMYCIN HCL 125 MG/2.5 ML ORAL.SUSP PO SCH (18:00)
--- NOTE | 2017-08-29 19:30 | NUR ---
RN INITIAL SHIFT NOTES RECEIVED REPORT FROM NURSE AVENDANO. RECEIVED PATIENT IN BED, AWAKE, ALERT AND ORIENTED TO SELF, POLISH SPEAKING, FAMILY AT BEDSIDE, ABLE TO TRANSLATE. PATIENT ABLE TO MAKE NEEDS KNOWN. DENIES ANY PAIN OR DISCOMFORT AT THIS TIME. ON O2 VIA NC @ 2LPM, TOLERATING WELL, SPO2 WNL. ON TELEMETRY MONITORING, REVEALING SINUS RHYTHM. SEGURA CATHETER PATENT AND INTACT, DRAINING PATRIC COLORED URINE TO GRAVITY. RIGHT UPPER ARM MIDLINE PATENT AND INTACT. PLAN OF CARE DISCUSSED WITH THE PATIENT'S FAMILY MEMBERS, WHO VERBALIZE UNDERSTANDING. ALL PERTINENT QUESTIONS ANSWERED. ISOLATION PRECAUTIONS OBSERVED. WILL CONTINUE TO CLOSELY MONITOR THE PATIENT
[2017-08-29] MEDS: LACTOBACILLUS RHAMNOSUS GG 1 EACH CAP.SPRINK PO SCH (20:28)
[2017-08-29] MEDS: SERTRALINE HCL 25 MG TABLET PO SCH (21:21)
[2017-08-29] MEDS: INSULIN GLARGINE, 100 UNIT/ML CARTRIDGE SQ SCH (21:23)
[2017-08-30] VITALS (19 sets, daily range): BP systolic 64–129; BP diastolic 42–68
--- NOTE | 2017-08-30 | NUR ---
RN NOTES PATIENT NOTED WITH SMALL BM, BROWN COLORED, SOFT, MUCOID. SACRUM CLEANSED WELL, BARRIER CREAM APPLIED. WILL CONTINUE TO CLOSELY MONITOR
[2017-08-30] MEDS: METRONIDAZOLE 500MG/ NS 100ML 500 MG in PREMIX 1 EA IV SCH ×3 (05:00→20:55)
[2017-08-30 05:27] LABS: WHITE BLOOD COUNT (AUTO) 14.7 K/uL (4.3-11.0)
[2017-08-30 05:28] LABS: BASOPHILS # (AUTO) 0.1 /CMM (0.0-0.2); BASOPHILS % (AUTO) 0.8 % (0.0-2.0); EOSINOPHILS % (AUTO) 1.1 % (0.0-6.0); HEMATOCRIT 35 % (33-45); HEMOGLOBIN 11.6 g/dL (11.5-14.8); LYMPHOCYTES # (AUTO) 2.7 /CMM (0.8-4.8); LYMPHOCYTES % (AUTO) 18.3 % (20.0-44.0); MEAN CORPUSCULAR HEMOGLOBIN 26 PG (26.0-33.0); MEAN CORPUSCULAR HGB CONC 34 g/dl (31.0-36.0); MEAN CORPUSCULAR VOLUME 78 fL (82-100); MONOCYTES # (AUTO) 1.2 /CMM (0.1-1.30); MONOCYTES % (AUTO) 7.9 % (2.0-12.0); NEUTROPHILS # (AUTO) 10.5 /CMM (1.8-8.9); NEUTROPHILS % (AUTO) 71.9 % (43.0-81.0); PLATELET COUNT (AUTO) 363 /CMM (150-450); RDW COEFFICIENT OF VARIATION 17.5 (11.5-15.0); RED BLOOD CELL COUNT(AUTO) 4.45 MIL/uL (4.0-5.2)
[2017-08-30] MEDS: HYDROCODONE/APAP 5/325MG 1 EACH TABLET PO PRN (05:43)
[2017-08-30 05:45] LABS: ALANINE AMINOTRANSFERASE 25 U/L (12-78); ALBUMIN 1.7 g/dL (3.4-5.0); ALKALINE PHOSPHATASE 164 U/L (46-116); ASPARTATE AMINOTRANSFERASE 43 U/L (15-37); BILIRUBIN,TOTAL 0.7 mg/dL (0.2-1.0); CALCIUM, SERUM 8.2 mg/dL (8.5-10.1); CARBON DIOXIDE 20 mmol/L (21-32); CHLORIDE 110 mmol/L (98-107); GLUCOSE 101 mg/dL (74-106); MAGNESIUM 1.9 mg/dL (1.8-2.4); PHOSPHORUS 4.6 mg/dL (2.5-4.9); POTASSIUM 3.5 mmol/L (3.5-5.1); SODIUM SERUM 141 mmol/L (136-145); TOTAL PROTEIN, SERUM 5.1 g/dL (6.4-8.2); UREA NITROGEN, BLOOD 55 mg/dL (7-18)
[2017-08-30] MEDS: MEROPENEM 500 MG in IV NS 0.9% 50 ML IV SCH (06:17)
--- NOTE | 2017-08-30 07:00 | NUR ---
RN CLOSING NOTES PATIENT RESTING IN BED, APPEARS COMFORTABLE. DENIES PAIN AT THIS TIME. WILL ENDORSE THE PATIENT TO THE AM SHIFT NURSE FOR CONTINUITY OF CARE
[2017-08-30] MEDS ORDERED: BUMETANIDE INJ 16 MG in IV NS 0.9% 16 ML IV ONE (08:00)
--- NOTE | 2017-08-30 08:13 | NUR ---
WOUND CARE CONSULT: PT PRESENTS WITH STAGE 2 ULCER TO SACRUM WITH SURROUNDING AREA OF DEEP TISSUE INJURY, PRESENT ON ADMISSION. CURRENT JASEN SCORE IS 11. ALL SKIN PROTECTION AND WOUND CARE RECOMMENDATIONS DISCUSSED WITH NURSING STAFF. FIRST STEP MATTRESS ORDERED (LOW AIRLOSS OVERLAY). PT HAVING LOOSE STOOLS. WILL SEE PRN. JAY IN AGREEMENT WITH PLAN OF CARE. Addendum: 08/30/17 at 0815 by JACKIE ANDRES WNDNU Amended: Links added.
[2017-08-30] MEDS: LACTOBACILLUS RHAMNOSUS GG 1 EACH CAP.SPRINK PO SCH ×2 (08:20→18:03)
[2017-08-30] MEDS: ASPIRIN 81 MG TAB.CHEW PO SCH (08:20)
[2017-08-30] MEDS: POTASSIUM CHLORIDE 20 MEQ TAB.PRT.SR PO SCH ×3 (08:20→09:56)
[2017-08-30] MEDS: predniSONE 5 MG TABLET PO SCH (08:20)
[2017-08-30] MEDS: hydrALAZINE HCL 50 MG TABLET PO SCH ×2 (08:21→17:00)
[2017-08-30] MEDS: CARVEDILOL 6.25 MG TABLET PO SCH ×2 (08:21→17:00)
[2017-08-30] MEDS: Z GUARD REMEDY 2 OZ OINT TP PRN (08:21)
[2017-08-30] MEDS: ISOSORBIDE DINITRATE (20MG) 20 MG TABLET PO SCH ×2 (08:21→17:00)
[2017-08-30] MEDS: BLOOD SUGAR DIAGNOSTIC 1 EACH STRIP IN SCH ×4 (08:22→22:20)
[2017-08-30] MEDS: HYDROGEL DRESSING 90 GM TUBE TP SCH (08:22)
[2017-08-30] MEDS ORDERED: HYDROGEL DRESSING 90 GM TUBE TP PRN (08:30)
[2017-08-30] MEDS: FIDAXOMICIN 200 MG TABLET PO SCH ×2 (08:48→18:03)
[2017-08-30] MEDS: PANTOPRAZOLE 40 MG TABLET.DR PO SCH (08:48)
[2017-08-30] MEDS: Z GUARD REMEDY 4 OZ OINT TP SCH ×2 (08:48→20:56)
[2017-08-30] MEDS: ZINC OXIDE 56.7 GM TUBE TP SCH (08:49)
[2017-08-30] MEDS ORDERED: PANTOPRAZOLE 40 MG TABLET.DR PO SCH (09:00)
--- NOTE | 2017-08-30 11:18 | NUR ---
RN NOTE 0720: Received patient lethargic, follows commands, understands little Icelandic. No c/o chest pain at this time. With nurse care manager from ct scan tech available. No c/o discomfort at this time. On 2LPM of O2 via NC tolerated, no distress noted. VSS at this time. On isolation precaution for Hx ESBL urine, maintained and observed. Crump cath intact, noted with yellow urine drained to BSD. BELINDA midline intact. Kept call light at reach. 0845: S/E by Maria De Jesus LIZ, with order to may transfer to [facility], CN aware. 0900: Held Bumex drip for SBP 70-80's, placed HOB flat for now. Will continue to monitor. 0930: SBP 80's still, made Maria De Jesus LIZ aware, held downgrade for now. 1100: Restarted on Bumex drip, SBP 100's now. Son Manuel at bedside, updated re: patient's condition. Noted patient with confusion as verbalized by son. Will continue to monitor.
--- NOTE | 2017-08-30 13:47 | NUR ---
RN NOTE Transferred patient to [facility], VSS. SBP 110's, Bumex drip ongoing. Report given to Elena CORTEZ. No any significant changes noted at this time.
[2017-08-30 16:19] LABS: INR 3.68 (0.87-1.13)
[2017-08-30] MEDS: WARFARIN SODIUM 2 MG TABLET PO SCH (17:00)
--- NOTE | 2017-08-30 17:20 | NUR ---
RN NOTE PER HOTEL OR MOTEL RECEPTIONIST KAM SOTO TO HOLD COUMADIN FOR TODAY AND RECHECK PT INR TOMORROW. WILL CARRY OUT ORDER.
[2017-08-30] MEDS ORDERED: VANCOMYCIN HCL 125 MG CAPSULE PO SCH (18:00)
[2017-08-30] MEDS: INSULIN REGULAR, HUMAN 100 UNIT/ML 3 ML VIAL SQ PRN (18:21)
--- NOTE | 2017-08-30 18:39 | NUR ---
RN NOTE PT'S WAS FEEING PT, PT CO DIFFICULTY SWALLOWING LIQUID, SHE WAS OKAY WITH JELLO AND APPLE SAUCE, PT WAS REPORTED THAT SHE WAS ABLE TO EAT BY HERSELF FOR LUNCH IN ICU. WILL ORDER SWALLOW EVAL AND NOTIFIRoslyn JAY. UPPER EXTREMITIES' MUSHROOM GROWER ARE EQUAL, WEAK, PUPIL SIZE PERRLA BOTH., PT CANNOT HOLD ARMS STRAIGHT FOR MORE THAN A SECOND.
--- NOTE | 2017-08-30 20:53 | NUR ---
DANA OCRTEZ AWARE OF STAT CT ABDOMEN RESULT , CONTINUE PT NPO , NO NEW ORDERS .
[2017-08-30] MEDS: INSULIN GLARGINE, 100 UNIT/ML CARTRIDGE SQ SCH (22:00)
[2017-08-30] MEDS: SERTRALINE HCL 25 MG TABLET PO SCH (22:00)
[2017-08-30] MEDS: VANCOMYCIN HCL 125 MG/2.5 ML ORAL.SUSP PO SCH (23:11)
[2017-08-31] VITALS (8 sets, daily range): BP systolic 78–134; BP diastolic 44–83
[2017-08-31] MEDS: METRONIDAZOLE 500MG/ NS 100ML 500 MG in PREMIX 1 EA IV SCH ×3 (04:35→21:38)
[2017-08-31] MEDS: VANCOMYCIN HCL 125 MG/2.5 ML ORAL.SUSP PO SCH ×3 (05:48→17:42)
[2017-08-31 06:31] LABS: ALANINE AMINOTRANSFERASE 24 U/L (12-78); ALBUMIN 1.8 g/dL (3.4-5.0); ALKALINE PHOSPHATASE 180 U/L (46-116); ASPARTATE AMINOTRANSFERASE 42 U/L (15-37); BILIRUBIN,TOTAL 0.8 mg/dL (0.2-1.0); CALCIUM, SERUM 8.2 mg/dL (8.5-10.1); CARBON DIOXIDE 19 mmol/L (21-32); CHLORIDE 109 mmol/L (98-107); CREATININE 1.9 mg/dL (0.6-1.3); GLUCOSE 159 mg/dL (74-106); MAGNESIUM 1.8 mg/dL (1.8-2.4); PHOSPHORUS 4.1 mg/dL (2.5-4.9); POTASSIUM 3.7 mmol/L (3.5-5.1); SODIUM SERUM 141 mmol/L (136-145); TOTAL PROTEIN, SERUM 5.7 g/dL (6.4-8.2); UREA NITROGEN, BLOOD 52 mg/dL (7-18)
[2017-08-31] MEDS: BLOOD SUGAR DIAGNOSTIC 1 EACH STRIP IN SCH ×4 (06:34→21:52)
[2017-08-31 06:58] LABS: BASOPHILS % (AUTO) 0.2 % (0.0-2.0); EOSINOPHILS % (AUTO) 0.7 % (0.0-6.0); HEMATOCRIT 38 % (33-45); HEMOGLOBIN 13.1 g/dL (11.5-14.8); LYMPHOCYTES # (AUTO) 2.4 /CMM (0.8-4.8); LYMPHOCYTES % (AUTO) 17.8 % (20.0-44.0); MEAN CORPUSCULAR HEMOGLOBIN 27 PG (26.0-33.0); MEAN CORPUSCULAR HGB CONC 35 g/dl (31.0-36.0); MEAN CORPUSCULAR VOLUME 78 fL (82-100); MONOCYTES # (AUTO) 1.3 /CMM (0.1-1.30); MONOCYTES % (AUTO) 9.8 % (2.0-12.0); NEUTROPHILS # (AUTO) 9.5 /CMM (1.8-8.9); NEUTROPHILS % (AUTO) 71.5 % (43.0-81.0); PLATELET COUNT (AUTO) 375 /CMM (150-450); RDW COEFFICIENT OF VARIATION 16.2 (11.5-15.0); RED BLOOD CELL COUNT(AUTO) 4.84 MIL/uL (4.0-5.2); WHITE BLOOD COUNT (AUTO) 13.3 K/uL (4.3-11.0)
[2017-08-31] MEDS: PANTOPRAZOLE 40 MG TABLET.DR PO SCH (07:30)
--- NOTE | 2017-08-31 08:00 | NUR ---
TD/RN AM SHIFT INITIAL NOTES RECEIVED PT AWAKE SITTING IN BED, A/O 1-2, CONFUSED, KEPT PULLING TELE LEADS OFF. ON 2L O2 VIA N/C SATURATING @ 98%, LUNG SOUNDS DIMINISHED, RESPIRATIONS EVEN AND UNLABORED. SINUS RHYTHM WITH PACs, HR 95. MIDLINE PATENT FLUSHED, PATENT, SL. SEGURA CATHETER INTACT WITH YELLOW URINE OUTPUT. PT ON NPO STATUS AT THIS TIME, SCHEDULED FOR SWALLOW EVALUATION TODAY. CL WITHIN REACHED AND SAFETY MAINTAINED. ON GOING MONITORING.
[2017-08-31 08:05] LABS: INR 3.69 (0.87-1.13)
[2017-08-31] MEDS: CARVEDILOL 6.25 MG TABLET PO SCH ×2 (09:00→17:42)
[2017-08-31] MEDS: predniSONE 5 MG TABLET PO SCH (09:00)
[2017-08-31] MEDS: ISOSORBIDE DINITRATE (20MG) 20 MG TABLET PO SCH ×2 (09:00→17:41)
[2017-08-31] MEDS: ASPIRIN 81 MG TAB.CHEW PO SCH (09:00)
[2017-08-31] MEDS: LACTOBACILLUS RHAMNOSUS GG 1 EACH CAP.SPRINK PO SCH ×2 (09:00→17:42)
[2017-08-31] MEDS: FIDAXOMICIN 200 MG TABLET PO SCH ×2 (09:00→17:40)
[2017-08-31] MEDS: hydrALAZINE HCL 50 MG TABLET PO SCH ×2 (09:00→17:43)
[2017-08-31] MEDS: Z GUARD REMEDY 2 OZ OINT TP PRN (09:17)
[2017-08-31] MEDS: HYDROGEL DRESSING 90 GM TUBE TP SCH (09:17)
[2017-08-31] MEDS: Z GUARD REMEDY 4 OZ OINT TP SCH ×2 (09:21→21:39)
[2017-08-31] MEDS: ZINC OXIDE 56.7 GM TUBE TP SCH (09:21)
--- NOTE | 2017-08-31 10:03 | NUR ---
TD/RN ROUNDS - DR. GAYTAN UPDATED PT'S CONDITION. WITH VERBAL ORDERS FOR IV HYDRATION OF D5W @ 60CC/HR AND TO ADD LIPASE TO AM LABS. ORDER NOTED AND CARRIED OUT. MONITORING CONTINUED.
[2017-08-31] MEDS ORDERED: IV D5W 1,000 ML IV PRN (10:30)
--- NOTE | 2017-08-31 10:35 | NUR ---
TD/RN SWALLOW EVALUATION - PASSED PT PASSED SWALLOW EVALUATION, SPEECH THERAPIST RECOMMENDS DIABETIC FINELY CHOPPED DIET. ALSO, NOTIFIED DR. GAYTAN REGARDING THE SWALLOW EVALUATION, WITH VERBAL ORDER FOR PT TO RECEIVED JUST 1 LITER OF D5W INSTEAD OF CONTINUOS. MONITORING CONTINUED.
[2017-08-31] MEDS ORDERED: IV D5W 1,000 ML IV ONE (11:06)
[2017-08-31 11:49] LABS: EOSINOPHILS % (MANUAL) 3 % (0-4); LYMPHOCYTES % (MANUAL) 16 % (16-48); MONOCYTES % (MANUAL) 5 % (0-11.0); NEUTROPHILS % (MANUAL) 76 (42-76)
[2017-08-31] MEDS: INSULIN REGULAR, HUMAN 100 UNIT/ML 3 ML VIAL SQ PRN ×2 (12:09→17:36)
--- NOTE | 2017-08-31 19:35 | NUR ---
RN NOTE RECEIVED PATIENT IN THE BED, SON IS BY BEDSIDE, BP OF 78/44 NOTED, LETHARGIC, NOTIFIED KECIA GAYTAN BLOCKMASON, NEW ORDER IS GIVEN AND CARRIED OUT
--- NOTE | 2017-08-31 19:55 | NUR ---
TD/RN AM SHIFT END NOTES ALL NEEDS MET, NO ACUTE CHANGE OF CONDITION NOTED DURING THE SHIFT. PT ENDORSED TO PM NURSE TO CONTINUE CARE. CL WITHIN REACHED AND SAFETY MAINTAINED.
[2017-08-31] MEDS ORDERED: IV NS 0.9% 500 ML IV ONE (20:30)
[2017-08-31] MEDS: SERTRALINE HCL 25 MG TABLET PO SCH (21:52)
[2017-08-31] MEDS: INSULIN GLARGINE, 100 UNIT/ML CARTRIDGE SQ SCH (21:54)
[2017-09-01] VITALS: BP 106/55
[2017-09-01] MEDS: VANCOMYCIN HCL 125 MG/2.5 ML ORAL.SUSP PO SCH ×4 (00:31→17:37)
[2017-09-01] MEDS: HYDROCODONE/APAP 5/325MG 1 EACH TABLET PO PRN ×2 (00:46→21:56)
[2017-09-01 04:00] VITALS: BP 115/79
--- NOTE | 2017-09-01 07:02 | NUR ---
RN NOTE PATIENT IS STABLE, NO RESPIRATORY DISTRESS NOTED, ALL SAFETY MEASURES TAKEN, WILL ENDORSE TO AM SHIFT FOR NYLA
--- NOTE | 2017-09-01 07:12 | NUR ---
RN INITIAL NOTES: REC'D PT AWAKE ON BED, A/O X 1-2 W/ CONFUSION. ON NC/2LPM, NO SOB. ON TELEMONITOR, SR 92 BPM. HAS BELINDA MIDLINE, SL, PATENT & INTACT W/ NO S/SX OF INFECTION/INFILTRATION NOTED. PROVIDED COMFORT & SAFETY MEASURES. BED KEPT LOW & IN LOCKED POS. CALL LIGHT PLACED W/IN REACH. WILL CONT TO MONITOR & ATTEND PT NEEDS.
[2017-09-01] MEDS: BLOOD SUGAR DIAGNOSTIC 1 EACH STRIP IN SCH ×4 (07:56→22:13)
[2017-09-01 08:00] VITALS: BP 119/68
[2017-09-01] MEDS: ASPIRIN 81 MG TAB.CHEW PO SCH (08:14)
[2017-09-01] MEDS: LACTOBACILLUS RHAMNOSUS GG 1 EACH CAP.SPRINK PO SCH ×2 (08:14→17:37)
[2017-09-01] MEDS: PANTOPRAZOLE 40 MG TABLET.DR PO SCH (08:14)
[2017-09-01] MEDS: predniSONE 5 MG TABLET PO SCH (08:15)
[2017-09-01] MEDS: hydrALAZINE HCL 50 MG TABLET PO SCH ×2 (08:16→17:00)
[2017-09-01] MEDS: ISOSORBIDE DINITRATE (20MG) 20 MG TABLET PO SCH ×3 (08:16→17:00)
[2017-09-01] MEDS: HYDROGEL DRESSING 90 GM TUBE TP SCH (08:17)
[2017-09-01] MEDS: Z GUARD REMEDY 2 OZ OINT TP PRN (08:17)
[2017-09-01] MEDS: CARVEDILOL 6.25 MG TABLET PO SCH ×3 (08:17→17:00)
[2017-09-01] MEDS: Z GUARD REMEDY 4 OZ OINT TP SCH ×2 (08:18→21:55)
[2017-09-01] MEDS: INSULIN REGULAR, HUMAN 100 UNIT/ML 3 ML VIAL SQ PRN ×4 (08:18→22:17)
[2017-09-01] MEDS: ZINC OXIDE 56.7 GM TUBE TP SCH (08:36)
[2017-09-01 12:00] VITALS: BP 97/55
--- NOTE | 2017-09-01 13:16 | NUR ---
PT SEEN & EXAMINED BY DR. BARKER W/ ORDERS MADE & CARRIED OUT. MADE AWARE RE: EPISODE OF MUCOIDY GREENISH W/ BLOOD SPECS IN THE STOOL.
[2017-09-01 13:57] LABS: BASOPHILS # (AUTO) 0.1 /CMM (0.0-0.2); BASOPHILS % (AUTO) 0.5 % (0.0-2.0); EOSINOPHILS % (AUTO) 0.8 % (0.0-6.0); HEMATOCRIT 36 % (33-45); HEMOGLOBIN 12.7 g/dL (11.5-14.8); LYMPHOCYTES # (AUTO) 2.5 /CMM (0.8-4.8); LYMPHOCYTES % (AUTO) 19.8 % (20.0-44.0); MEAN CORPUSCULAR HEMOGLOBIN 27 PG (26.0-33.0); MEAN CORPUSCULAR HGB CONC 35 g/dl (31.0-36.0); MEAN CORPUSCULAR VOLUME 78 fL (82-100); MONOCYTES % (AUTO) 8.1 % (2.0-12.0); NEUTROPHILS # (AUTO) 9.1 /CMM (1.8-8.9); NEUTROPHILS % (AUTO) 70.8 % (43.0-81.0); PLATELET COUNT (AUTO) 341 /CMM (150-450); RDW COEFFICIENT OF VARIATION 17.1 (11.5-15.0); RED BLOOD CELL COUNT(AUTO) 4.64 MIL/uL (4.0-5.2); WHITE BLOOD COUNT (AUTO) 12.8 K/uL (4.3-11.0)
[2017-09-01 14:03] LABS: CALCIUM, SERUM 7.6 mg/dL (8.5-10.1); CARBON DIOXIDE 19 mmol/L (21-32); CHLORIDE 108 mmol/L (98-107); CREATININE 1.9 mg/dL (0.6-1.3); GLUCOSE 222 mg/dL (74-106); POTASSIUM 3.3 mmol/L (3.5-5.1); SODIUM SERUM 139 mmol/L (136-145); UREA NITROGEN, BLOOD 49 mg/dL (7-18)
--- NOTE | 2017-09-01 15:10 | NUR ---
K 3.[address] BARKER W/ ORDERS TO GIVE KCL 30 MEQS IV.
[2017-09-01] MEDS: POTASSIUM CL. PREMIX PERIPHER. 50 ML IV SCH ×3 (15:50→17:58)
[2017-09-01 16:00] VITALS: BP 109/47
[2017-09-01] MEDS: METRONIDAZOLE 500MG/ NS 100ML 500 MG in PREMIX 1 EA IV SCH (17:37)
--- NOTE | 2017-09-01 18:53 | NUR ---
RN CLOSING NOTES: NO ACUTE CHANGES NOTED W/IN SHIFT. PT TOLERATED NC/2LPM, NO SOB. ON TELEMONITOR, STILL SR. BELINDA MIDLINE, SL, KEPT PATENT & INTACT W/ NO S/SX OF INFECTION/INFILTRATION NOTED. KEPT WELL RESTED. NEEDS ATTENDED. STOOL SPECIMEN SENT TO LAB FOR OCCULT. BED KEPT LOW & IN LOCKED POS. CALL LIGHT PLACED W/IN REACH. WILL ENDORSE TO PM RN FOR NYLA.
--- NOTE | 2017-09-01 19:30 | NUR ---
TD RN: RECEIVED ALERT AND AWAKE PT WT CONFUSION. ON 2L 02 VIA NC WT NO ACUTE DISTRESS. NO EVIDENCE OF DISCOMFORT AT THIS TIME. SR WT BBB ON TELE MONITOR. AFEBRILE. BELINDA MIDLINE TKO WT NO S/S OF INFILTRATION. HOB AT 45 DEGREES. SAFETY PRECAUTION NOTED. WILL CONTINUE TO MONITOR.
[2017-09-01 20:00] VITALS: BP 127/67
[2017-09-01 21:40] LABS: OCCULT BLOOD STOOL POSITIVE (NEGATIVE)
[2017-09-01] MEDS: SERTRALINE HCL 25 MG TABLET PO SCH (21:55)
[2017-09-01] MEDS: INSULIN GLARGINE, 100 UNIT/ML CARTRIDGE SQ SCH (22:15)
[2017-09-02] VITALS: BP 123/66
[2017-09-02] MEDS: VANCOMYCIN HCL 125 MG/2.5 ML ORAL.SUSP PO SCH ×4 (00:06→17:09)
[2017-09-02] MEDS: METRONIDAZOLE 500MG/ NS 100ML 500 MG in PREMIX 1 EA IV SCH ×3 (00:43→17:12)
[2017-09-02 04:00] VITALS: BP 132/70
[2017-09-02 06:07] LABS: CALCIUM, SERUM 8.1 mg/dL (8.5-10.1); CREATININE 1.6 mg/dL (0.6-1.3); GLUCOSE 84 mg/dL (74-106); UREA NITROGEN, BLOOD 46 mg/dL (7-18)
[2017-09-02 06:16] LABS: CARBON DIOXIDE 22 mmol/L (21-32); CHLORIDE 111 mmol/L (98-107); POTASSIUM 3.7 mmol/L (3.5-5.1); SODIUM SERUM 141 mmol/L (136-145)
[2017-09-02 06:21] LABS: BASOPHILS # (AUTO) 0.1 /CMM (0.0-0.2); BASOPHILS % (AUTO) 0.4 % (0.0-2.0); EOSINOPHILS % (AUTO) 1.3 % (0.0-6.0); HEMATOCRIT 41 % (33-45); HEMOGLOBIN 13.4 g/dL (11.5-14.8); LYMPHOCYTES # (AUTO) 3.3 /CMM (0.8-4.8); LYMPHOCYTES % (AUTO) 24.7 % (20.0-44.0); MEAN CORPUSCULAR HEMOGLOBIN 27 PG (26.0-33.0); MEAN CORPUSCULAR HGB CONC 33 g/dl (31.0-36.0); MEAN CORPUSCULAR VOLUME 81 fL (82-100); MONOCYTES # (AUTO) 1.4 /CMM (0.1-1.30); MONOCYTES % (AUTO) 10.5 % (2.0-12.0); NEUTROPHILS # (AUTO) 8.4 /CMM (1.8-8.9); NEUTROPHILS % (AUTO) 63.1 % (43.0-81.0); PLATELET COUNT (AUTO) 404 /CMM (150-450); RDW COEFFICIENT OF VARIATION 18.3 (11.5-15.0); RED BLOOD CELL COUNT(AUTO) 5.05 MIL/uL (4.0-5.2); WHITE BLOOD COUNT (AUTO) 13.3 K/uL (4.3-11.0)
--- NOTE | 2017-09-02 06:35 | NUR ---
TD RN: NO SIGNIFICANT NYLA DURING THE SHIFT. REMAINED ALERT AND AWAKE WT CONFUSION. ABLE TO FOLLOW SIMPLE COMMANDS. PAIN MED GIVEN FOR FACIAL GRIMACE (4/10) DURING REPOSITIONING AND ADL WT GOOD EFFECT (0/10). STILL ON 2L 02 VIA NC WT NO ACUTE DISTRESS. REMAINED AFEBRILE. HAD BOWEL MOVEMENT X 2 WT SOFT FORMED TO MUCOID DARK BROWN WT BLOOD STOOLS. GOOD SKIN CARE RENDERED. SAFETY PRECAUTION NOTED AT ALL TIMES.
[2017-09-02 08:00] VITALS: BP 134/69
--- NOTE | 2017-09-02 08:00 | NUR ---
RN OPENING NOTES: RECEIVEDE REPORT FROM PM NURSE. PT AWAKE ON BED, A/O X 1 W/ CONFUSION. ON NC/2LPM, NO SOB. ON TELEMONITOR, SR 86 BPM. HAS BELINDA MIDLINE, SL, PATENT & INTACT W/ NO S/SX OF INFECTION/INFILTRATION NOTED. SAFETY MEASURES MAINTAINED. BED KEPT LOW & IN LOCKED POS. CALL LIGHT PLACED W/IN REACH. WILL CONT TO MONITOR .
[2017-09-02] MEDS: PANTOPRAZOLE 40 MG TABLET.DR PO SCH (08:22)
[2017-09-02] MEDS: predniSONE 5 MG TABLET PO SCH (08:22)
[2017-09-02] MEDS: LACTOBACILLUS RHAMNOSUS GG 1 EACH CAP.SPRINK PO SCH ×2 (08:22→17:09)
[2017-09-02] MEDS: ASPIRIN 81 MG TAB.CHEW PO SCH (08:22)
[2017-09-02] MEDS: hydrALAZINE HCL 50 MG TABLET PO SCH ×2 (08:22→17:11)
[2017-09-02] MEDS: BLOOD SUGAR DIAGNOSTIC 1 EACH STRIP IN SCH ×4 (08:23→21:03)
[2017-09-02] MEDS: CARVEDILOL 6.25 MG TABLET PO SCH ×2 (08:23→17:10)
[2017-09-02] MEDS: Z GUARD REMEDY 4 OZ OINT TP SCH ×2 (08:24→21:16)
[2017-09-02] MEDS: HYDROGEL DRESSING 90 GM TUBE TP SCH (08:24)
[2017-09-02] MEDS: ZINC OXIDE 56.7 GM TUBE TP SCH (08:25)
[2017-09-02] MEDS: ISOSORBIDE DINITRATE (20MG) 20 MG TABLET PO SCH ×2 (08:28→17:10)
[2017-09-02 12:00] VITALS: BP_SYST 129; BP_SYST 98; BP_DIAS 48; BP_DIAS 69
[2017-09-02 16:00] VITALS: BP 129/69
--- NOTE | 2017-09-02 17:00 | NUR ---
RN NOTES [place] CONSTABLE LEXI NOTIFIED ABOUT THE FAMILY CONCERN REGARDING THE DISCHARGE,THEY DONT WANT HER TO GO BACK TO [facility].WANT TO LOOK FOR FACILITY CLOSER TO THEIR HOME.GIVE PHONE NUMBER OF THE DAUGHTER IN LOW TO CONTACT HER.
--- NOTE | 2017-09-02 17:30 | NUR ---
RN NOTES SEEN BY ,MADE AWARE ABOUT ALL HER LABS AND INR OF 3.69 AND NOT ON COUMADIN.AND SHE IS NOT ON DVT PROPHYLAXIS.HE SAID HE WILL REVIEW THE CHART.ON SCD .FAMILY WAS AT BEDSIDE.
--- NOTE | 2017-09-02 17:35 | NUR ---
RN NOTES MADE AWARE ABOUT AN EPISODE OF LOW BLOOD SUGAR AND POSITIVE OB.MADE AWARE STOOL IS BLACK MUCOID.
[2017-09-02] MEDS: IV NS 0.9% 1,000 ML IV PRN (18:13)
--- NOTE | 2017-09-02 19:15 | NUR ---
RN SHIFT END NOTES: PT AWAKE ON BED, A/O X 1 W/ CONFUSION. ON NC/2LPM, NO SOB. ON TELEMONITOR, SR 84 BPM. HAS BELINDA MIDLINE, WITH IV NS 75CC/HR. PATENT & INTACT W/ NO S/SX OF INFECTION/INFILTRATION NOTED. SAFETY MEASURES MAINTAINED. BED KEPT LOW & IN LOCKED POS. CALL LIGHT PLACED W/IN REACH. ENDORSED TO PM NURSE FOR NYLA.
[2017-09-02 20:00] VITALS: BP 107/61
[2017-09-02] MEDS: SERTRALINE HCL 25 MG TABLET PO SCH (21:06)
[2017-09-02] MEDS: HYDROCODONE/APAP 5/325MG 1 EACH TABLET PO PRN (21:07)
[2017-09-02] MEDS: INSULIN REGULAR, HUMAN 100 UNIT/ML 3 ML VIAL SQ PRN (21:12)
[2017-09-02] MEDS: INSULIN GLARGINE, 100 UNIT/ML CARTRIDGE SQ SCH (21:12)
[2017-09-03] VITALS (7 sets, daily range): BP systolic 104–136; BP diastolic 53–74
[2017-09-03] MEDS: VANCOMYCIN HCL 125 MG/2.5 ML ORAL.SUSP PO SCH ×4 (00:16→17:05)
[2017-09-03] MEDS: METRONIDAZOLE 500MG/ NS 100ML 500 MG in PREMIX 1 EA IV SCH ×3 (01:13→16:06)
[2017-09-03] MEDS: HYDROCODONE/APAP 5/325MG 1 EACH TABLET PO PRN ×2 (01:53→09:00)
[2017-09-03 06:12] LABS: BASOPHILS # (AUTO) 0.1 /CMM (0.0-0.2); BASOPHILS % (AUTO) 0.8 % (0.0-2.0); EOSINOPHILS % (AUTO) 1.2 % (0.0-6.0); HEMATOCRIT 37 % (33-45); HEMOGLOBIN 12.3 g/dL (11.5-14.8); LYMPHOCYTES # (AUTO) 2.7 /CMM (0.8-4.8); LYMPHOCYTES % (AUTO) 26.7 % (20.0-44.0); MEAN CORPUSCULAR HEMOGLOBIN 27 PG (26.0-33.0); MEAN CORPUSCULAR HGB CONC 33 g/dl (31.0-36.0); MEAN CORPUSCULAR VOLUME 82 fL (82-100); MONOCYTES # (AUTO) 1.2 /CMM (0.1-1.30); MONOCYTES % (AUTO) 11.3 % (2.0-12.0); NEUTROPHILS # (AUTO) 6.1 /CMM (1.8-8.9); PLATELET COUNT (AUTO) 356 /CMM (150-450); RDW COEFFICIENT OF VARIATION 18.3 (11.5-15.0); RED BLOOD CELL COUNT(AUTO) 4.54 MIL/uL (4.0-5.2); WHITE BLOOD COUNT (AUTO) 10.2 K/uL (4.3-11.0)
[2017-09-03] MEDS: BLOOD SUGAR DIAGNOSTIC 1 EACH STRIP IN SCH ×4 (06:30→22:22)
[2017-09-03 06:46] LABS: ALANINE AMINOTRANSFERASE 25 U/L (12-78); ALBUMIN 1.7 g/dL (3.4-5.0); ALKALINE PHOSPHATASE 203 U/L (46-116); ASPARTATE AMINOTRANSFERASE 41 U/L (15-37); BILIRUBIN,TOTAL 0.7 mg/dL (0.2-1.0); CALCIUM, SERUM 7.8 mg/dL (8.5-10.1); CARBON DIOXIDE 23 mmol/L (21-32); CHLORIDE 106 mmol/L (98-107); CREATININE 1.3 mg/dL (0.6-1.3); GLUCOSE 126 mg/dL (74-106); LIPASE 713 U/L (73-393); MAGNESIUM 1.8 mg/dL (1.8-2.4); POTASSIUM 3.5 mmol/L (3.5-5.1); SODIUM SERUM 136 mmol/L (136-145); TOTAL PROTEIN, SERUM 5.4 g/dL (6.4-8.2); UREA NITROGEN, BLOOD 40 mg/dL (7-18)
--- NOTE | 2017-09-03 07:22 | NUR ---
FREIGHT COORDINATOR NOTES: RECEIVED PT ON BED ALERT AND AWAKE, VERBALLY RESPONSIVE. NO ACUTE DISTRESS NOTED. DENIES PAIN AT THIS TIME. BREATHING EVEN AND UNLABORED WITH NORMAL RESPIRATIONS. BELINDA MIDLINE INTACT AND PATENT WITH IVF NS @ 75ML/HR. KEPT CLEAN, DRY AND COMFORTABLE. SIDE RAILS UP X2. BED ALARM ON. BED LOCKED AND IN LOWEST POSITION. CALL LIGHT PLACED WITHIN REACH. WILL CONTINUE TO MONITOR PT.
[2017-09-03] MEDS: PANTOPRAZOLE 40 MG TABLET.DR PO SCH (08:00)
[2017-09-03] MEDS: LACTOBACILLUS RHAMNOSUS GG 1 EACH CAP.SPRINK PO SCH ×2 (08:57→16:07)
[2017-09-03] MEDS: ASPIRIN 81 MG TAB.CHEW PO SCH (08:57)
[2017-09-03] MEDS: predniSONE 5 MG TABLET PO SCH (08:57)
[2017-09-03] MEDS: hydrALAZINE HCL 50 MG TABLET PO SCH ×2 (08:58→16:05)
[2017-09-03] MEDS: CARVEDILOL 6.25 MG TABLET PO SCH ×2 (08:59→16:05)
[2017-09-03] MEDS: ISOSORBIDE DINITRATE (20MG) 20 MG TABLET PO SCH ×2 (08:59→16:04)
[2017-09-03] MEDS: IV NS 0.9% 1,000 ML IV PRN (09:16)
[2017-09-03] MEDS: HYDROGEL DRESSING 90 GM TUBE TP SCH (09:21)
[2017-09-03] MEDS: ZINC OXIDE 56.7 GM TUBE TP SCH (09:21)
[2017-09-03] MEDS: Z GUARD REMEDY 4 OZ OINT TP SCH ×2 (09:21→22:02)
[2017-09-03] MEDS: INSULIN REGULAR, HUMAN 100 UNIT/ML 3 ML VIAL SQ PRN ×3 (11:32→22:20)
--- NOTE | 2017-09-03 19:54 | NUR ---
ORACLE DATABASE DEVELOPER NOTES: PT ON BED ASLEEP. NO ACUTE DISTRESS NOTED. NO COMPLAINTS OF PAIN OR DISCOMFORT. NO SOB. KEPT CLEAN, DRY AND COMFORTABLE. WILL ENDORSE TO VEGETABLE I FARMWORKER FOR NYLA
[2017-09-03] MEDS: SERTRALINE HCL 25 MG TABLET PO SCH (22:03)
[2017-09-03] MEDS: INSULIN GLARGINE, 100 UNIT/ML CARTRIDGE SQ SCH (22:19)
[2017-09-04] VITALS: BP 139/85
[2017-09-04] MEDS: METRONIDAZOLE 500MG/ NS 100ML 500 MG in PREMIX 1 EA IV SCH ×2 (00:56→08:51)
[2017-09-04 04:00] VITALS: BP 109/77
[2017-09-04] MEDS: IV NS 0.9% 1,000 ML IV PRN (05:52)
[2017-09-04] MEDS: VANCOMYCIN HCL 125 MG/2.5 ML ORAL.SUSP PO SCH ×3 (05:52→12:28)
[2017-09-04 06:18] LABS: BASOPHILS # (AUTO) 0.1 /CMM (0.0-0.2); BASOPHILS % (AUTO) 0.8 % (0.0-2.0); EOSINOPHILS % (AUTO) 1.6 % (0.0-6.0); HEMATOCRIT 37 % (33-45); HEMOGLOBIN 12.1 g/dL (11.5-14.8); LYMPHOCYTES # (AUTO) 2.6 /CMM (0.8-4.8); LYMPHOCYTES % (AUTO) 26.1 % (20.0-44.0); MEAN CORPUSCULAR HEMOGLOBIN 27 PG (26.0-33.0); MEAN CORPUSCULAR HGB CONC 33 g/dl (31.0-36.0); MEAN CORPUSCULAR VOLUME 81 fL (82-100); MONOCYTES % (AUTO) 10.2 % (2.0-12.0); NEUTROPHILS # (AUTO) 6.1 /CMM (1.8-8.9); NEUTROPHILS % (AUTO) 61.3 % (43.0-81.0); PLATELET COUNT (AUTO) 366 /CMM (150-450); RDW COEFFICIENT OF VARIATION 19.3 (11.5-15.0); RED BLOOD CELL COUNT(AUTO) 4.49 MIL/uL (4.0-5.2); WHITE BLOOD COUNT (AUTO) 9.9 K/uL (4.3-11.0)
[2017-09-04 06:40] LABS: CALCIUM, SERUM 8.1 mg/dL (8.5-10.1); CARBON DIOXIDE 21 mmol/L (21-32); CHLORIDE 108 mmol/L (98-107); CREATININE 1.2 mg/dL (0.6-1.3); GLUCOSE 186 mg/dL (74-106); POTASSIUM 3.5 mmol/L (3.5-5.1); SODIUM SERUM 139 mmol/L (136-145); UREA NITROGEN, BLOOD 35 mg/dL (7-18)
[2017-09-04] MEDS: INSULIN REGULAR, HUMAN 100 UNIT/ML 3 ML VIAL SQ PRN (06:42)
[2017-09-04] MEDS: BLOOD SUGAR DIAGNOSTIC 1 EACH STRIP IN SCH ×2 (06:44→11:34)
--- NOTE | 2017-09-04 07:10 | NUR ---
TELE/RN INITIAL NOTES RECEIVED PT IN BED, ASLEEP BUT AROUSABLE TO NAME. ON 2L O2 VIA NC, TOLERATING WELL, NO SOB NOTED, NO C/O PAIN AT THIS TIME. SR HR 95 ON TELEMONITOR. WITH ONGOING IVF OF NS AT 75ML/HR INFUSING WELL ON BELINDA MID. NO SIGNS OF INFECTION NOTED. HOB ELEVATED. SAFETY MEASURES IN PLACED. CALL LIGHT WITHIN REACH. WILL CONT TO MONITOR
[2017-09-04 08:00] VITALS: BP 110/74
[2017-09-04] MEDS: PANTOPRAZOLE 40 MG TABLET.DR PO SCH (08:18)
[2017-09-04] MEDS: predniSONE 5 MG TABLET PO SCH (08:52)
[2017-09-04] MEDS: ASPIRIN 81 MG TAB.CHEW PO SCH (08:52)
[2017-09-04] MEDS: LACTOBACILLUS RHAMNOSUS GG 1 EACH CAP.SPRINK PO SCH (08:52)
[2017-09-04 08:55] VITALS: BP 110/74
[2017-09-04] MEDS: hydrALAZINE HCL 50 MG TABLET PO SCH (08:55)
[2017-09-04] MEDS: ISOSORBIDE DINITRATE (20MG) 20 MG TABLET PO SCH (08:55)
[2017-09-04] MEDS: CARVEDILOL 6.25 MG TABLET PO SCH (08:55)
[2017-09-04] MEDS: ZINC OXIDE 56.7 GM TUBE TP SCH (09:09)
[2017-09-04] MEDS: HYDROGEL DRESSING 90 GM TUBE TP SCH (09:11)
[2017-09-04] MEDS: Z GUARD REMEDY 4 OZ OINT TP SCH (09:12)
[2017-09-04] MEDS: POTASSIUM CHLORIDE 20 MEQ TAB.PRT.SR PO SCH ×3 (09:50→12:24)
[2017-09-04] MEDS ORDERED: FUROSEMIDE 40 MG/4 ML VIAL IV SCH (10:00)
[2017-09-04] MEDS ORDERED: VANC125C11 PO (11:21)
--- NOTE | 2017-09-04 12:46 | NUR ---
RN NOTES REPORT GIVEN TO DANA TAMEZ ([facility]) DTR FIORELLA NOTIFIED ABOUT PT'S D/C
--- NOTE | 2017-09-04 15:28 | NUR ---
RN NOTES D/C PT TO [facility], REPORT GIVEN TO EMT. PT IS STABLE. NO C/O PAIN. NO SOB NOTED. D/C MIDLINE, PRESSURE DRESSING APPLIED. NO SIGNS OF INFECTION/BLEEDING NOTED. SAFETY MEASURES AND ASPIRATION PRECAUTION OBSERVED AT ALL TIMES. ALL NEEDS ANTICIPATED. D/C
== END 2017-09-04 15:28 | DRG 720 ==
LOC: ER 16:08 → TELE 17:56 → ICU 08-28 14:20 → TELE-TD 08-30 13:08 → TELE1 08-31 05:17 → TELE-TD 08-31 07:06 → TELE1 09-02 18:21
PROVIDERS: ADMIT Nurse Practitioner Acute Care; ATTEND Nurse Practitioner Acute Care
PROC: B546ZZA Ultrasonography of Right Subclavian Vein, Guidance (ICD-10-PCS; principal; 2017-08-27)
PROC: 05H533Z Insertion of Infusion Device into Right Subclavian Vein, Percutaneous Approach (ICD-10-PCS; principal; 2017-08-27)
DX: A41.9 Sepsis, unspecified organism (principal); I21.4 Non-ST elevation (NSTEMI) myocardial infarction; J96.01 Acute respiratory failure with hypoxia; N17.0 Acute kidney failure with tubular necrosis; I50.23 Acute on chronic systolic (congestive) heart failure; G93.41 Metabolic encephalopathy; K85.90 Acute pancreatitis without necrosis or infection, unspecified; J18.9 Pneumonia, unspecified organism; D68.9 Coagulation defect, unspecified; E44.0 Moderate protein-calorie malnutrition; I13.0 Hypertensive heart and chronic kidney disease with heart failure and stage 1 through stage 4 chronic kidney disease, or unspecified chronic kidney disease; E11.22 Type 2 diabetes mellitus with diabetic chronic kidney disease; I25.5 Ischemic cardiomyopathy; N39.0 Urinary tract infection, site not specified; N18.9 Chronic kidney disease, unspecified; Z79.01 Long term (current) use of anticoagulants; Z79.82 Long term (current) use of aspirin; Z79.899 Other long term (current) drug therapy; F03.90 Unspecified dementia, unspecified severity, without behavioral disturbance, psychotic disturbance, mood disturbance, and anxiety; Z96.641 Presence of right artificial hip joint; Z86.73 Personal history of transient ischemic attack (TIA), and cerebral infarction without residual deficits; Z86.19 Personal history of other infectious and parasitic diseases; Z79.4 Long term (current) use of insulin; I25.3 Aneurysm of heart; I25.10 Atherosclerotic heart disease of native coronary artery without angina pectoris; Z88.5 Allergy status to narcotic agent; D64.9 Anemia, unspecified; E11.51 Type 2 diabetes mellitus with diabetic peripheral angiopathy without gangrene; E11.65 Type 2 diabetes mellitus with hyperglycemia; E87.2 Acidosis; Z86.59 Personal history of other mental and behavioral disorders; I25.2 Old myocardial infarction
CPT/HCPCS: 36415; 36600; 70450-TC; 71045-TC; 80048-TC; 80053-TC; 80061-TC; 80076-TC; 81000-TC; 82140-TC; 82272-TC; 82962-TC; 83605-TC; 83690-TC; 83735-TC; 84100-TC; 84443-TC; 84484-TC; 85025-TC; 85610-TC; 85730-TC; 87040-TC; 87081-TC; 87086-TC; 92611-TC; 93307-TC; A4216; A4606; A6248; A6403; C9113; J1815; J1940; J2185; J2270; J2543; J3480; J3490; J7030; J7040; J7050; J7060; J7512; Z7610